=== PATIENT | male | born 1945 | race Caucasian/White ===

== ENCOUNTER 2022-08-08 10:59 | Inpatient (IN) ==
[2022-08-08] MEDS ORDERED: NALOXONE HCL 0.4 MG/1 ML VIAL/CARP IV STA (11:16)
--- NOTE | 2022-08-08 11:21 | Emergency Department Note ---
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 Patient self is unable provide me any additional history. She will occasionally groan follow some simple commands and then will just roll back over. Unable to assess if he is in discomfort or pain. Facility reported to EMS that they are concerned that he decreased mentation possibly somewhat downward gaze. Records from the facility indicate that he was sent there after hospitalization at [facility] and prior to that to walk for CHF exacerbation started on dialysis. He evidently had a benign pancreatic tumor removed in April 2020. REVIEW OF SYSTEMS: A total of 10 review of systems was obtained and negative except as stated above in the HPI. PAST MEDICAL HISTORY: As noted above and prior right AKA MEDICATIONS: Reviewed medication list from his facility SOCIAL HISTORY: , no reported history of tobacco use PHYSICAL EXAM: GENERAL: alert to loud verbal stimuli but will not answer questions. Occasionally rolls in bed. Head: normocephalic and atraumatic EYES: No injection, discharge or icterus. PERRL but somewhat pinpoint around 3 to 2 mm bilaterally. Does not seem to have a fixed gaze. NECK: Trachea midline. Supple. ENT: Mucous membranes pink and moist. LUNGS: Airway patent. No retractions. Breath sounds diminished in the bases HEART: Regular rate and rhythm. No chest wall tenderness with a right upper chest dialysis catheter in place. ABDOMEN: Soft and non-tender, without guarding or rebound. Healed midline surgical incision at the top of which there is a trace amount of tannish discharge. SKIN: Acyanotic, warm, dry with some scattered old sticker adhesive across the chest noted. EXTREMITIES: Right AKA without significant stump swelling or tenderness. The left lower extremity has 2-3+ edema without erythema. NEUROLOGICAL: Withdraws to pain in the extremities. Will occasionally try to roll over in bed and does make eye contact with loud verbal stimulation but not answering questions. EK bpm normal sinus rhythm. No PVC or PAC. No acute ST segment elevation with some lateral ST changes CONTINUOUS CARDIAC MONITORING: was ordered and showed a heart rate of 70s-80s bpm in NSR Patient's laboratory studies and imaging reviewed. Differential includes Infection, dehydration, metabolic abnormality, hypo/hyper glycemia, electrolyte disturbance, anemia, hypoxia, cardiac sources, intracerebral event, toxicologic, neurologic, as well as other pathologies. IMPRESSION/MEDICAL DECISION MAKING: Patient with multiple past medical issues including dialysis, abdominal surgery, and CHF. He with a change in mentation. On chronic pain medication. Did trial a dose of some Narcan here. Does have significant swelling of the left lower extremity some concern for some hypervolemia. Was due for dialysis today. Not hypoxic. EMS reports the patient may have had a fever. Infectious work-up will be completed. Trace discharge from the abdomen was swabbed and sent for culture although it seems to be fairly superficial. We will complete a CT head and the abdomen pelvis. Reports reviewed but no tenderness on exam. Trial of Narcan did not seem to have any significant effect. Patient was transiently awake and talking and then seem to have gone to sleep again. states this is not quite like him although he has slept deeply before. Blood work without leukocytosis although does have some anemia of 7.7. Unsure of exact baseline based on available records from [facility]. BNP elevated and does appear somewhat fluid overloaded. does report he was on a antibiotic regimen month or 2 ago regarding a post abdominal wound infection. Again white count is not elevated but question if this could be the source of the fever. UA pending as he seems to make urine. Needs dialysis but not emergently will avoid aggressive mag replacement as he will get dialysis soon. Again unsure of exact etiology of his sleepiness at times but again it is somewhat intermittent. Given the change however will bring into the hospital for further observation and care. DIAGNOSIS: AMS, Fluid overload, ESRD on dialysis, hypomagnesemia DISPOSITION: Hospitalist will evaluate Past Med/Surg History Medical History (Updated 08/08/22 @ 19:11 by Ramiro Montenegro M.D.) (HFpEF) heart failure with preserved ejection fraction Above knee amputation of right lower extremity Acute on chronic renal failure Altered mental status Anasarca CHF (congestive heart failure) Chronic pain Depression Diabetes mellitus type 1 DM2 (diabetes mellitus, type 2) ESRD (end stage renal disease) on dialysis HLD (hyperlipidemia) HTN (hypertension) Pancreatic tumor Pleural effusion Social History Smoking Status: Former smoker Second Hand Exposure: No; Do You Dip or Chew Tobacco: No; Tobacco Cessation Education Requested by Patient: No Hx Alcohol Use: No Hx Substance Use: No Preferred Language: Thai Communication Ability: Effective Site Acquisition Manager Required: No Beliefs That Will Affect Care: None Current Living Situation: Spouse Other Information That Helps Us Care for You: No Feels Safe at Home: Yes Safety Concerns: Feels Safe At This Time Assistive Devices: Walker Allergies Allergies Allergy/AdvReac Type Severity Reaction Status Date / Time aspirin AdvReac Unknown GASTRIC Unverified 01/22/12 13:49 UPSET codeine AdvReac Unknown GASTRIC Unverified 01/22/12 13:49 UPSET Home Meds Home Medications Medication Instructions Recorded Confirmed AMLODIPINE BESYLATE (NORVASC) 5 mg PO QPM ##0 01/22/12 08/08/22 Lorazepam (Ativan *) 0.5 mg PO TID PRN ##0 01/22/12 08/08/22 Lovastatin (Mevacor) 40 mg PO QPM ##0 01/22/12 08/08/22 Results & Data (ED) Vital Signs Vital Signs - 24 hr 08/08/22 11:12 08/08/22 11:12 08/08/22 12:02 Temperature 38.0 C H Temperature Source Oral Pulse Rate 80 Pulse Rate from SpO2 Sensor Respiratory Rate 13 Respiratory Effort / Characteristics Non-Labored Spontaneous Respiratory Depth Normal Respiratory Pattern Regular Blood Pressure 138/63 Blood Pressure Mean 88 Blood Pressure Position Lying Pulse Oximetry 97 Oxygen Delivery Method Room Air Room Air Room Air Sepsis Recent Fever Within 48 Hours Yes Sepsis New/Unexplained Change in Mental Status Yes Sepsis Action Taken by Nursing No Action Required 08/08/22 11:07 08/08/22 11:10 08/08/22 11:20 Temperature Temperature Source Pulse Rate 80 77 72 Pulse Rate from SpO2 Sensor 79 76 72 Respiratory Rate 17 16 Respiratory Effort / Characteristics Respiratory Depth Respiratory Pattern Blood Pressure Blood Pressure Mean Blood Pressure Position Pulse Oximetry 96 95 97 Oxygen Delivery Method Room Air Room Air Room Air Sepsis Recent Fever Within 48 Hours Sepsis New/Unexplained Change in Mental Status Sepsis Action Taken by Nursing 08/08/22 11:30 08/08/22 11:31 08/08/22 11:31 Temperature Temperature Source Pulse Rate 77 76 Pulse Rate from SpO2 Sensor 77 77 Respiratory Rate 17 19 Respiratory Effort / Characteristics Respiratory Depth Respiratory Pattern Blood Pressure 142/60 H Blood Pressure Mean 87 Blood Pressure Position Pulse Oximetry 96 96 Oxygen Delivery Method Room Air Room Air Room Air Sepsis Recent Fever Within 48 Hours Sepsis New/Unexplained Change in Mental Status Sepsis Action Taken by Nursing 08/08/22 11:48 08/08/22 11:50 08/08/22 12:00 Temperature Temperature Source Pulse Rate 80 Pulse Rate from SpO2 Sensor 82 Respiratory Rate 19 Respiratory Effort / Characteristics Respiratory Depth Respiratory Pattern Blood Pressure 153/80 H Blood Pressure Mean 104 Blood Pressure Position Pulse Oximetry 96 Oxygen Delivery Method Room Air Room Air Room Air Sepsis Recent Fever Within 48 Hours Sepsis New/Unexplained Change in Mental Status Sepsis Action Taken by Nursing 08/08/22 12:00 08/08/22 12:10 08/08/22 12:15 Temperature Temperature Source Pulse Rate 77 74 81 Pulse Rate from SpO2 Sensor 74 75 81 Respiratory Rate 16 20 20 Respiratory Effort / Characteristics Respiratory Depth Respiratory Pattern Blood Pressure Blood Pressure Mean Blood Pressure Position Pulse Oximetry 94 99 95 Oxygen Delivery Method Room Air Room Air Room Air Sepsis Recent Fever Within 48 Hours Sepsis New/Unexplained Change in Mental Status Sepsis Action Taken by Nursing 08/08/22 12:15 08/08/22 12:20 08/08/22 12:30 Temperature Temperature Source Pulse Rate 76 Pulse Rate from SpO2 Sensor 77 Respiratory Rate 20 Respiratory Effort / Characteristics Respiratory Depth Respiratory Pattern Blood Pressure 164/77 H 154/97 H Blood Pressure Mean 106 116 Blood Pressure Position Pulse Oximetry 97 Oxygen Delivery Method Room Air Room Air Room Air Sepsis Recent Fever Within 48 Hours Sepsis New/Unexplained Change in Mental Status Sepsis Action Taken by Nursing 08/08/22 12:30 08/08/22 12:40 08/08/22 12:45 Temperature Temperature Source Pulse Rate 86 78 82 Pulse Rate from SpO2 Sensor 82 78 79 Respiratory Rate 20 18 19 Respiratory Effort / Characteristics Respiratory Depth Respiratory Pattern Blood Pressure Blood Pressure Mean Blood Pressure Position Pulse Oximetry 95 91 91 Oxygen Delivery Method Room Air Room Air Room Air Sepsis Recent Fever Within 48 Hours Sepsis New/Unexplained Change in Mental Status Sepsis Action Taken by Nursing 08/08/22 12:45 08/08/22 12:50 08/08/22 13:00 Temperature Temperature Source Pulse Rate 80 Pulse Rate from SpO2 Sensor 80 Respiratory Rate 21 Respiratory Effort / Characteristics Respiratory Depth Respiratory Pattern Blood Pressure 176/78 H 163/90 H Blood Pressure Mean 110 114 Blood Pressure Position Pulse Oximetry 94 Oxygen Delivery Method Room Air Room Air Room Air Sepsis Recent Fever Within 48 Hours Sepsis New/Unexplained Change in Mental Status Sepsis Action Taken by Nursing 08/08/22 13:00 08/08/22 13:10 08/08/22 13:15 Temperature Temperature Source Pulse Rate 84 82 81 Pulse Rate from SpO2 Sensor 80 83 81 Respiratory Rate 23 18 21 Respiratory Effort / Characteristics Respiratory Depth Respiratory Pattern Blood Pressure Blood Pressure Mean Blood Pressure Position Pulse Oximetry 95 95 91 Oxygen Delivery Method Room Air Room Air Room Air Sepsis Recent Fever Within 48 Hours Sepsis New/Unexplained Change in Mental Status Sepsis Action Taken by Nursing 08/08/22 13:15 08/08/22 13:20 08/08/22 13:30 Temperature Temperature Source Pulse Rate 83 Pulse Rate from SpO2 Sensor 84 Respiratory Rate 19 Respiratory Effort / Characteristics Respiratory Depth Respiratory Pattern Blood Pressure 154/77 H 166/82 H Blood Pressure Mean 102 110 Blood Pressure Position Pulse Oximetry 94 Oxygen Delivery Method Room Air Room Air Room Air Sepsis Recent Fever Within 48 Hours Sepsis New/Unexplained Change in Mental Status Sepsis Action Taken by Nursing 08/08/22 13:30 08/08/22 13:40 08/08/22 13:46 Temperature Temperature Source Pulse Rate 78 78 83 Pulse Rate from SpO2 Sensor 80 78 81 Respiratory Rate 24 19 Respiratory Effort / Characteristics Respiratory Depth Respiratory Pattern Blood Pressure Blood Pressure Mean Blood Pressure Position Pulse Oximetry 92 93 95 Oxygen Delivery Method Room Air Room Air Room Air Sepsis Recent Fever Within 48 Hours Sepsis New/Unexplained Change in Mental Status Sepsis Action Taken by Nursing 08/08/22 13:46 08/08/22 13:50 08/08/22 14:00 Temperature Temperature Source Pulse Rate 78 81 Pulse Rate from SpO2 Sensor 78 81 Respiratory Rate 18 17 Respiratory Effort / Characteristics Respiratory Depth Respiratory Pattern Blood Pressure 173/79 H Blood Pressure Mean 110 Blood Pressure Position Pulse Oximetry 92 93 Oxygen Delivery Method Room Air Room Air Room Air Sepsis Recent Fever Within 48 Hours Sepsis New/Unexplained Change in Mental Status Sepsis Action Taken by Nursing 08/08/22 14:01 08/08/22 14:01 Temperature Temperature Source Pulse Rate 82 Pulse Rate from SpO2 Sensor 83 Respiratory Rate 13 Respiratory Effort / Characteristics Respiratory Depth Respiratory Pattern Blood Pressure 182/87 H Blood Pressure Mean 118 Blood Pressure Position Pulse Oximetry 92 Oxygen Delivery Method Room Air Room Air Sepsis Recent Fever Within 48 Hours Sepsis New/Unexplained Change in Mental Status Sepsis Action Taken by Nursing Laboratory Data Result diagrams: 08/08/22 11:15 08/08/22 11:15 Lab Results 08/08/22 08/08/22 08/08/22 Range/Units 11:15 11:15 11:15 WBC 5.77 (4.8-10.8) K/ul RBC 2.56 L (4.63-6.08) M/uL Hgb 7.7 L (14.0-18.0) g/dl Hct 23.0 L (40.1-51.0) % MCV 89.8 (80.0-100.0) fL MCH 30.1 (25.0-34.0) pg MCHC 33.5 (32.0-36.0) g/dL RDW Std Deviation 79.7 H (36.4-46.3) fL RDW Coeff of Jacqui 25.0 H (11.5-14.5) % Plt Count 271 (130-400) K/uL MPV 10.7 (9.4-12.4) fL Immature Gran % (Auto) 0.2 % Neut % (Auto) 69.5 % Lymph % (Auto) 16.1 % [place] % (Auto) 13.0 % Eos % (Auto) 0.9 % Baso % (Auto) 0.3 % Neut # (Auto) 4.01 (1.4-6.5) K/uL Lymph # (Auto) 0.93 L (1.2-3.4) K/uL [place] # (Auto) 0.75 (0.24-0.82) K/uL Eos # (Auto) 0.05 (0-0.50) K/uL Baso # (Auto) 0.02 (0-0.2) K/uL Immature Gran # (Auto) 0.01 (0.00-0.02) K/uL Target Cells 1+ PT 11.9 (9.0-12.0) Seconds INR 1.1 (0.9-1.1) Sodium 135 L (136-145) mmol/L Potassium 4.0 (3.5-5.1) mmol/L Chloride 100 (98-107) mmol/L Carbon Dioxide 28 (21-32) mmol/L Anion Gap 7 (3-11) BUN 27 H (6-23) mg/dl Creatinine 2.63 H (0.6-1.4) mg/dl Est Cr Clr Drug Dosing Not Reportable Est GFR ( Amer) 25.7 ml/min Est GFR (Non-Af Amer) 22.1 ml/min BUN/Creatinine Ratio 10.3 (10-20) Glucose 89 (70-99(Fasting)) mg/dl Lactate (0.4-2.0) mmol/L Calcium 7.7 L (8.5-10.1) mg/dl Magnesium 1.5 L (1.7-2.4) mg/dl Total Bilirubin 0.4 (0.2-1.0) mg/dl AST 13 (13-39) U/L ALT 13 (7-52) U/L Alkaline Phosphatase 68 (34-104) U/L Troponin I High Sens 27.4 H (0-20) pg/ml B-Natriuretic Peptide (0-100) pg/ml Total Protein 5.9 L (6.0-8.3) gm/dl Albumin 2.3 L (3.4-5.0) gm/dl Globulin 3.6 (2.5-4.0) gm/dl Albumin/Globulin Ratio 0.6 L (0.9-2) Procalcitonin (0-0.5) ng/ml TSH (0.300-4.500) uIu/ml SARS-CoV-2, RNA, NAAT (NEGATIVE) 08/08/22 08/08/22 08/08/22 Range/Units 11:15 11:15 11:15 WBC (4.8-10.8) K/ul RBC (4.63-6.08) M/uL Hgb (14.0-18.0) g/dl Hct (40.1-51.0) % MCV (80.0-100.0) fL MCH (25.0-34.0) pg MCHC (32.0-36.0) g/dL RDW Std Deviation (36.4-46.3) fL RDW Coeff of Jacqui (11.5-14.5) % Plt Count (130-400) K/uL MPV (9.4-12.4) fL Immature Gran % (Auto) % Neut % (Auto) % Lymph % (Auto) % [place] % (Auto) % Eos % (Auto) % Baso % (Auto) % Neut # (Auto) (1.4-6.5) K/uL Lymph # (Auto) (1.2-3.4) K/uL [place] # (Auto) (0.24-0.82) K/uL Eos # (Auto) (0-0.50) K/uL Baso # (Auto) (0-0.2) K/uL Immature Gran # (Auto) (0.00-0.02) K/uL Target Cells PT (9.0-12.0) Seconds INR (0.9-1.1) Sodium (136-145) mmol/L Potassium (3.5-5.1) mmol/L Chloride (98-107) mmol/L Carbon Dioxide (21-32) mmol/L Anion Gap (3-11) BUN (6-23) mg/dl Creatinine (0.6-1.4) mg/dl Est Cr Clr Drug Dosing Est GFR ( Amer) ml/min Est GFR (Non-Af Amer) ml/min BUN/Creatinine Ratio (10-20) Glucose (70-99(Fasting)) mg/dl Lactate (0.4-2.0) mmol/L Calcium (8.5-10.1) mg/dl Magnesium (1.7-2.4) mg/dl Total Bilirubin (0.2-1.0) mg/dl AST (13-39) U/L ALT (7-52) U/L Alkaline Phosphatase (34-104) U/L Troponin I High Sens (0-20) pg/ml B-Natriuretic Peptide 812 H (0-100) pg/ml Total Protein (6.0-8.3) gm/dl Albumin (3.4-5.0) gm/dl Globulin (2.5-4.0) gm/dl Albumin/Globulin Ratio (0.9-2) Procalcitonin 0.27 (0-0.5) ng/ml TSH 1.471 (0.300-4.500) uIu/ml SARS-CoV-2, RNA, NAAT (NEGATIVE) 08/08/22 08/08/22 Range/Units 11:27 12:05 WBC (4.8-10.8) K/ul RBC (4.63-6.08) M/uL Hgb (14.0-18.0) g/dl Hct (40.1-51.0) % MCV (80.0-100.0) fL MCH (25.0-34.0) pg MCHC (32.0-36.0) g/dL RDW Std Deviation (36.4-46.3) fL RDW Coeff of Jacqui (11.5-14.5) % Plt Count (130-400) K/uL MPV (9.4-12.4) fL Immature Gran % (Auto) % Neut % (Auto) % Lymph % (Auto) % [place] % (Auto) % Eos % (Auto) % Baso % (Auto) % Neut # (Auto) (1.4-6.5) K/uL Lymph # (Auto) (1.2-3.4) K/uL [place] # (Auto) (0.24-0.82) K/uL Eos # (Auto) (0-0.50) K/uL Baso # (Auto) (0-0.2) K/uL Immature Gran # (Auto) (0.00-0.02) K/uL Target Cells PT (9.0-12.0) Seconds INR (0.9-1.1) Sodium (136-145) mmol/L Potassium (3.5-5.1) mmol/L Chloride (98-107) mmol/L Carbon Dioxide (21-32) mmol/L Anion Gap (3-11) BUN (6-23) mg/dl Creatinine (0.6-1.4) mg/dl Est Cr Clr Drug Dosing Est GFR ( Amer) ml/min Est GFR (Non-Af Amer) ml/min BUN/Creatinine Ratio (10-20) Glucose (70-99(Fasting)) mg/dl Lactate 1.8 (0.4-2.0) mmol/L Calcium (8.5-10.1) mg/dl Magnesium (1.7-2.4) mg/dl Total Bilirubin (0.2-1.0) mg/dl AST (13-39) U/L ALT (7-52) U/L Alkaline Phosphatase (34-104) U/L Troponin I High Sens (0-20) pg/ml B-Natriuretic Peptide (0-100) pg/ml Total Protein (6.0-8.3) gm/dl Albumin (3.4-5.0) gm/dl Globulin (2.5-4.0) gm/dl Albumin/Globulin Ratio (0.9-2) Procalcitonin (0-0.5) ng/ml TSH (0.300-4.500) uIu/ml SARS-CoV-2, RNA, NAAT NEGATIVE (NEGATIVE) Administered Medications Discontinued Medications Naloxone HCl (Naloxone Hcl 0.4 Mg/1 Ml Vial/Carp) 0.4 mg IV NOW STA Stop: 08/08/22 11:17 Last Admin: 08/08/22 12:06 Dose: 0.4 mg Documented By: MELINDA Imaging Data Radiologist's Impression: Abdomen/Pelvis CT 08/08/22 11:[address] WITHOUT CONTRAST CT DOSE: 1281.08 mGy.cm HISTORY: Acutely altered mental status. Acute abdominal pain with reported history of prior abdominal surgery. ams, hx abd surgery TECHNIQUE: Multiaxial CT images of the abdomen and pelvis were performed without contrast. A dose lowering technique was utilized adhering to the principles of ALARA. COMPARISON STUDY: Chest radiograph of same day FINDINGS: Motion degraded exam. Cardiomegaly with extensive coronary artery calcifications. Right IJ hemodialysis catheter distal tip terminates within the superior cavoatrial junction. The pulmonary artery is dilated suggestive of pulmonary arterial hypertension. Small to moderate left with moderate right pleural effusions. Dependent bibasilar consolidation. The study is degraded by respiratory motion artifact. Study is also limited without the use of contrast. The spleen, pancreas and adrenal glands are not well visualized. The gallbladder may be surgically absent. Mild intrahepatic pneumobilia. No focal abnormality of the liver identified. 3.9 cm exophytic cyst within the superior pole right kidney. There are 2 nonobstructing calculi within the right kidney measuring up to 9 mm. Inde terminate peripherally calcified 3.1 cm structure without significant 15 noted within the inferior pole left kidney. 5.8 cm exophytic cyst in the inferior pole left kidney. No definite hydronephrosis. Mild prostamegaly with urinary bladder distention. Atherosclerosis of the aorta. Small fat filled inguinal hernias. Postoperative changes of the right inguinal canal. No definite bowel obstruction or bowel wall thickening. Moderate fecal retention. 10 mm tubular structure within the abdominal right lower quadrant may represent a mildly dilated appendix. Trace ascites with diffuse mesenteric edema. Heterogeneity of the abdominal left upper quadrant omentum. Anasarca. De generative changes of the spine, pelvis and hips. Cortical thickening of the proximal left femur suggestive of a healed chronic fracture deformity with postoperative changes and prior hardware removal. IMPRESSION: 1. The study is nearly nondiagnostic considering the lack of contrast and motion degradation. 2. Postoperative changes of the upper abdomen with heterogeneity within the abdominal left upper quadrant omentum, suboptimally evaluated as above. Findings may be on a postsurgical basis. No drainable fluid collection. 3. Cardiomegaly with fluid overload manifested by layering pleural effusions, trace ascites and anasarca. 4. Nonobstructing right renal calculi. No ureteral calculi or hydronephrosis. 5. 10 mm tubular structures in the abdominal right lower quadrant may represent a mildly dilated appendix. Correlate with clinical exam findings. 6. Cholecystectomy with pneumobilia. 7. Moderate fecal retention. 8. Additional findings as above. ACT 112: Negative or not required by law. The above report was generated using voice recognition software. It may contain grammatical, syntax or spelling errors. Electronically signed by: Salazar Mcdonough M.D. 08/08/2022 12:00 PM Chest X-Ray 08/08/22 11:11 XR chest 1V portable HISTORY: weakness COMPARISON: Chest 01/22/2012. FINDINGS: No pneumothorax. The heart is mildly enlarged. There is a moderate right pleural effusion. No significant left pleural effusion. Perihilar interstitial/vascular thickening favors mild pulmonary edema. Right basilar densities are noted. There is a right jugular catheter which terminates at the right atrium. Right hilar prominence is noted. IMPRESSION: 1. Moderate right pleural effusion. 2. Cardiomegaly with mild pulmonary edema. 3. Right perihilar/basilar densities are noted. This may represent atelectasis from the pleural effusion. Follow-up recommended to ensure resolution. ACT 112: Negative or not required by law. Electronically signed by: Paulo Randhawa M.D. 08/08/2022 11:[address] 08/08/22 11:[address] DOSE: HISTORY: Weakness. Altered mental status. TECHNIQUE: Multiaxial CT images of the head were performed without the use of intravenous contrast. Automated exposure control was utilized for this study. A dose lowering technique was utilized adhering to the principles of ALARA. Comparison: None. Findings: Motion artifact. The paranasal sinuses and mastoid air cells are clear. The calvarium and skull base are intact. There is no mass, hematoma, midline shift, acute infarct. White matter hypodensity is nonspecific but suggestive of microvascular ischemic change. The ventricles and sulci demonstrat e mild age-related involutional changes. Old small lacunar infarcts seen within the right thalamus and cerebellar vermis. Impression: Motion artifact. No definite acute intracranial abnormality. ACT 112: Negative or not required by law. Electronically signed by: Paulo Randhawa M.D. 08/08/2022 11:57 AM Discharge Plan Visit Data Chief Complaint: Illness Stated Complaint: AMS ED Provider: Ramiro Montenegro Discharge Problem: Altered mental status, ESRD (end stage renal disease) on dialysis, Diabetes mellitus type 1, Above knee amputation of right lower extremity, Anemia Patient Disposition: Admitted As Inpatient Discharge Instructions Interventions: ED Discharge Assessment Last Done: 08/08/22 15:40
--- NOTE | 2022-08-08 11:39 | XRay Report ---
XR chest 1V portable HISTORY: weakness COMPARISON: Chest 01/22/2012. FINDINGS: No pneumothorax. The heart is mildly enlarged. There is a moderate right pleural effusion. No significant left pleural effusion. Perihilar interstitial/vascular thickening favors mild pulmonar y edema. Right basilar densities are noted. There is a right jugular catheter which terminates at the right atrium. Right hilar prominence is noted. IMPRESSION: 1. Moderate right pleural effusion. 2. Cardiomegaly with mild pulmonary edema. 3. Right perihilar/basilar densities are noted. This may represent atelectasis from the pleural effus ion. Follow-up recommended to ensure resolution. ACT 112: Negative or not required by law. Electronically signed by: Paulo Randhawa M.D. 08/08/2022 11:38 AM
[2022-08-08 11:46] LABS: Basophils # (auto) 0.02 K/uL (0-0.2); Basophils % (auto) 0.3 %; Eosinophils # (auto) 0.05 K/uL (0-0.50); Eosinophils % (auto) 0.9 %; Hemoglobin 7.7 g/dl (14.0-18.0); Immature Granulocytes # (auto) 0.01 K/uL (0.00-0.02); Immature Granulocytes % (auto) 0.2 %; Lymphocytes # (auto) 0.93 K/uL (1.2-3.4); Lymphocytes % (auto) 16.1 %; Mean Corpuscular Hemoglobin 30.1 pg (25.0-34.0); Mean Corpuscular Hgb Conc 33.5 g/dL (32.0-36.0); Mean Corpuscular Volume 89.8 fL (80.0-100.0); Mean Platelet Volume 10.7 fL (9.4-12.4); Monocytes # (auto) 0.75 K/uL (0.24-0.82); Neutrophils # (auto) 4.01 K/uL (1.4-6.5); Neutrophils % (auto) 69.5 %; Platelet Count 271 K/uL (130-400); RDW Standard Deviation 79.7 fL (36.4-46.3); Red Blood Count 2.56 M/uL (4.63-6.08); White Blood Count 5.77 K/ul (4.8-10.8)
[2022-08-08 11:56] LABS: INR 1.1 (0.9-1.1); Prothrombin Time 11.9 Seconds (9.0-12.0)
--- NOTE | 2022-08-08 11:58 | CT Scan Report ---
HEAD CT NONCONTRAST CT DOSE: HISTORY: Weakness. Altered mental status. TECHNIQUE: Multiaxial CT images of the head were performed without the use of intravenous contrast. A utomated exposure control was utilized for this study. A dose lowering technique was utilized adheri ng to the principles of ALARA. Comparison: None. Findings: Motion artifact. The paranasal sinuses and mastoid air cells are clear. The calvarium and s kull base are intact. There is no mass, hematoma, midline shift, acute infarct. White matter hypodens ity is nonspecific but suggestive of microvascular ischemic change. The ventricles and sulci demonstr ate mild age-related involutional changes. Old small lacunar infarcts seen within the right thalamus and cerebellar vermis. Impression: Motion artifact. No definite acute intracranial abnormality. ACT 112: Negative or not required by law. Electronically signed by: Paulo Randhawa M.D. 08/08/2022 11:57 AM
--- NOTE | 2022-08-08 12:02 | CT Scan Report ---
ABDOMEN AND PELVIS CT WITHOUT CONTRAST CT DOSE: 1281.08 mGy.cm HISTORY: Acutely altered mental status. Acute abdominal pain with reported history of prior abdominal surgery. ams, hx abd surgery TECHNIQUE: Multiaxial CT images of the abdomen and pelvis were performed without contrast. A dose lo wering technique was utilized adhering to the principles of ALARA. COMPARISON STUDY: Chest radiograph of same day FINDINGS: Motion degraded exam. Cardiomegaly with extensive coronary artery calcifications. Right IJ hemodialys is catheter distal tip terminates within the superior cavoatrial junction. The pulmonary artery is di lated suggestive of pulmonary arterial hypertension. Small to moderate left with moderate right pleur al effusions. Dependent bibasilar consolidation. The study is degraded by respiratory motion artifact . Study is also limited without the use of contrast. The spleen, pancreas and adrenal glands are not well visualized. The gallbladder may be surgically ab sent. Mild intrahepatic pneumobilia. No focal abnormality of the liver identified. 3.9 cm exophytic cyst within the superior pole right kidney. There are 2 nonobstructing calculi withi n the right kidney measuring up to 9 mm. Indeterminate peripherally calcified 3.1 cm structure withou t significant 15 noted within the inferior pole left kidney. 5.8 cm exophytic cyst in the inferior po le left kidney. No definite hydronephrosis. Mild prostamegaly with urinary bladder distention. Athero sclerosis of the aorta. Small fat filled inguinal hernias. Postoperative changes of the right inguina l canal. No definite bowel obstruction or bowel wall thickening. Moderate fecal retention. 10 mm tubular struc ture within the abdominal right lower quadrant may represent a mildly dilated appendix. Trace ascites with diffuse mesenteric edema. Heterogeneity of the abdominal left upper quadrant omentum. Anasarca. Degenerative changes of the spine, pelvis and hips. Cortical thickening of the proximal left femur s uggestive of a healed chronic fracture deformity with postoperative changes and prior hardware remova l. IMPRESSION: 1. The study is nearly nondiagnostic considering the lack of contrast and motion degradation. 2. Postoperative changes of the upper abdomen with heterogeneity within the abdominal left upper quad rant omentum, suboptimally evaluated as above. Findings may be on a postsurgical basis. No drainable fluid collection. 3. Cardiomegaly with fluid overload manifested by layering pleural effusions, trace ascites and anasa rca. 4. Nonobstructing right renal calculi. No ureteral calculi or hydronephrosis. 5. 10 mm tubular structures in the abdominal right lower quadrant may represent a mildly dilated appe ndix. Correlate with clinical exam findings. 6. Cholecystectomy with pneumobilia. 7. Moderate fecal retention. 8. Additional findings as above. ACT 112: Negative or not required by law. The above report was generated using voice recognition software. It may contain grammatical, syntax o r spelling errors. Electronically signed by: Salazar Mcdonough M.D. 08/08/2022 12:00 PM
[2022-08-08 12:07] LABS: Target Cells 1+
[2022-08-08 12:11] LABS: Alanine Aminotransferase 13 U/L (7-52); Albumin Globulin Ratio 0.6 (0.9-2); Albumin Level 2.3 gm/dl (3.4-5.0); Alkaline Phosphatase 68 U/L (34-104); Anion Gap 7 (3-11); Aspartate Aminotransferase 13 U/L (13-39); BUN Creatinine Ratio 10.3 (10-20); Bilirubin,Total 0.4 mg/dl (0.2-1.0); Blood Urea Nitrogen 27 mg/dl (6-23); Calcium 7.7 mg/dl (8.5-10.1); Carbon Dioxide 28 mmol/L (21-32); Chloride 100 mmol/L (98-107); Est GFR (African American) 25.7 ml/min; Est GFR (Non-African American) 22.1 ml/min; Globulin 3.6 gm/dl (2.5-4.0); Glucose 89 mg/dl (70-99(Fasting)); Magnesium 1.5 mg/dl (1.7-2.4); Sodium 135 mmol/L (136-145); Total Protein 5.9 gm/dl (6.0-8.3)
[2022-08-08 12:13] LABS: Troponin I High Sensitivity 27.4 pg/ml (0-20)
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
[2022-08-08] MEDS ORDERED: PHARMACY GLYCEMIC MGMT CONSULT PRN (15:13)
[2022-08-08] MEDS ORDERED: SODIUM CHLORIDE 0.9% 1000ML 1,000 ML IV PRN (15:30)
[2022-08-08] MEDS ORDERED: ACETAMINOPHEN 325 MG TAB PO PRN (17:21)
[2022-08-08] MEDS ORDERED: CARBOHYDRATES FOR HYPOGLYCEMIA PO PRN (17:21)
[2022-08-08] MEDS ORDERED: GLUCOSE 40% GEL 15 GM TUBE PO PRN (17:21)
[2022-08-08] MEDS ORDERED: DC ALL PREVIOUSLY ORDERED DIABETES MEDS ONE (17:21)
[2022-08-08] MEDS ORDERED: MAGNESIUM HYDROXIDE SUSP 30 ML UDC PO PRN (17:21)
[2022-08-08] MEDS ORDERED: POLYETHYLENE (MIRALAX) 17 GM PACK PO PRN (17:21)
[2022-08-08] MEDS ORDERED: GLUCAGON FOR INJ 1 MG VIAL SQ PRN (17:21)
[2022-08-08] MEDS ORDERED: ALUMINUM/MAGNESIUM SUSP 30 ML UDC PO PRN (17:21)
[2022-08-08] MEDS ORDERED: GLUCOSE 10 TAB/TUBE PO PRN (17:21)
[2022-08-08] MEDS ORDERED: ONDANSETRON INJ 2 MG/ML 2 ML VIAL IV PRN (17:21)
--- NOTE | 2022-08-08 18:01 | Consultation Report ---
NEPHROLOGY CONSULTATION NOTE DATE OF SERVICE: 08/08/2022. REASON FOR CONSULTATION: Dialysis patient admitted with altered mental status and low glucose. HISTORY OF PRESENT ILLNESS: The patient is a 77-year-old male who was transferred earlier from [facility] where he was supposed to get dialysis today as per his schedule of Thursday, Thursday, ay. However, he had somewhat sudden decline in his cognitive status and confusion associated with lo w glucose. After that, the patient was sent over to the hospital for further evaluation and admissio n. He is a new starter for dialysis and was started on hemodialysis in [facility] just recentl y. He also had a renal biopsy done on 07/28/2022, but I do not have the result of the biopsy at this point. Patient is unable to give any history at this point. He did not open eyes and he did not ans wer any of my questions. During this most recent hospital admission, he was diagnosed with pancreati c serous cystadenoma, status post pancreatectomy, which was performed at [facility] and has now become a type 1 diabetic. Since then, he was admitted for a postoperative abscess in [facility] and completed 6 weeks course of IV antibiotics. He then was admitted in [facility] where he was diagnosed with renal failure and was started on hemodialysis. The patient has refused dialysi s at times including most recently on Thursday, so [facility] He is currently getting dialysis as I speak. He does have significant lower extremity edema, but breathing cotton, he appears to be fairly stable. Chest x-ray done earlier today shows possible pu lmonary edema. His hemoglobin is low at 7.7. I am not exactly clear how much he is eating at this t lorenzo, but he seems to be very noninteractive at this point, blood pressure is high. ALLERGIES: Reviewed. MEDICATIONS: Home medication was reviewed and is as per the reconciliation and the H and P list. PAST MEDICAL AND SURGICAL HISTORY: Includes history of congestive heart failure, history of diabetes , following the pancreatic resection. He now is on insulin, end-stage renal disease on dialysis but only for the last few weeks. Hypertension, pancreatic tumor. SOCIAL HISTORY: Unable to review at this time as the patient is not talking and nobody at the [facility]. REVIEW OF SYSTEMS: Not obtainable due to cognitive status. PHYSICAL EXAMINATION: GENERAL: Elderly white male who is lying in the bed, appears to be quite comfortable breathing cotton, he is not answering or following any command. VITAL SIGNS: Blood pressure is 183/90, pulse rate 81, temperature 38 degrees Celsius, 92% on room ai r. HEENT: Mucous membrane is moist. NECK: Supple. No JVD. CHEST: Limited breath sounds. CARDIOVASCULAR: S1 and S2, regular. ABDOMEN: Soft, nontender. EXTREMITIES: Show 2+ pitting edema in his unilateral leg, status post BKA. NEUROLOGIC: It appears he does not want to answer questions. He keeps his eyes closed and did not f ollow any command. LABORATORY TEST: From this morning shows hemoglobin 7.7, platelet count 271, BUN 27, creatinine 2.63 , calcium 7.7, magnesium 1.5, albumin 2.3. COVID test negative. Chest x-ray shows moderate right pl eural effusion, cardiomegaly with mild pulmonary edema. CT abdomen and pelvis shows cardiomegaly wit h fluid overload, pleural effusion, ascites and anasarca. ASSESSMENT AND PLAN: A 77-year-old male with newly started hemodialysis within the last few weeks, w as getting rehab at the rehab hospital, but was transferred because of altered mental status and low glucose. I have been consulted for dialysis management. End-stage renal disease, he has been newly started on hemodialysis. A lot of details are still not c lear at this time, but it is clear that he has only been started on hemodialysis within the last 4-6 weeks and even had a renal biopsy, but the result of which I do not have at this time, patient is sti ll making urine. On exam, he appears to be significantly fluid overloaded with both pleural effusion , pulmonary edema, ascites and anasarca and significant pitting edema. His blood pressure is also hi gh. Given the scheduling constraints for today, we will do him for 3 hours. However, I strongly bel ieve that he still makes urine and if given enough Lasix, he should be making more, so given that I w ill give him Lasix 100 mg IV twice daily starting this evening. Next week, we will try to obtain the result of the renal biopsy. His dates are Thursday, Thursday, Thursday. At this point, I am not exactl y clear why he is not getting the Epogen or the heparin, but we will figure this out. We will do renay lysis today without heparin and without Epogen. Thank you very much for the consult. Job ID: [id number]
[2022-08-08] MEDS ORDERED: cefTRIAXone SODIUM 1,000 MG in DEXTROSE 5% 50 ML IV SCH (19:00)
[2022-08-08] MEDS: MAGNESIUM SULFATE / D5W 1 GM/100 ML BAG IV SCH ×2 (20:07→22:38)
[2022-08-08] MEDS: INSULIN ASPART PER UNIT SC SCH ×2 (20:11→23:08)
--- NOTE | 2022-08-08 20:44 | XRay Report ---
SINGLE VIEW CHEST CLINICAL HISTORY: Pleural effusions. FINDINGS: 2 AP, portable, upright chest radiographs (to study dated 08/08/2022. A right internal jugul ar central venous catheter is unchanged in position. The heart is enlarged noting atherosclerotic geremias cification of the thoracic aorta. There is mild pulmonary vascular congestion. There are larger than left pleural effusions with dependent consolidation. These are similar in appearance to today's earli er examination. No pneumothorax is seen. The skeletal structures are osteopenic. The bony thorax is g rossly intact. IMPRESSION: 1. Cardiomegaly with pulmonary vascular congestion. 2. Right larger than left pleural effusions with dependent consolidation. This is similar to today's earlier examination. ACT 112: Negative or not required by law. Electronically signed by: Jose Miguel Pan M.D. 08/08/2022 8:42 PM
[2022-08-08] MEDS ORDERED: LANTUS PER UNIT CHARGE SQ SCH ×2 (21:00)
[2022-08-08] MEDS ORDERED: HEPARIN SODIUM (PORCINE) 5,000 UNITS in SYRINGE 0 ML IV SCH (21:00)
[2022-08-08] MEDS ORDERED: hydrALAZINE HCL 20 MG/ML VIAL IV SCH ×2 (21:00)
[2022-08-08] MEDS: DAPTOmycin 275 MG in SYRINGE 0 ML IV SCH (22:38)
[2022-08-08] MEDS: HEPARIN SOD 5,000 UNIT/0.5 ML VIAL SQ SCH (22:39)
[2022-08-08] MEDS: FUROSEMIDE 10 MG/ML 10 ML VIAL IV SCH (22:39)
[2022-08-09] MEDS: DEXTROSE 50% 50 ML SYRINGE IV PRN (07:32)
[2022-08-09 08:03] LABS: Hematocrit (blood only) 26.4 % (40.1-51.0); Hemoglobin 8.9 g/dl (14.0-18.0); Mean Corpuscular Hemoglobin 30.3 pg (25.0-34.0); Mean Corpuscular Hgb Conc 33.7 g/dL (32.0-36.0); Mean Corpuscular Volume 89.8 fL (80.0-100.0); Platelet Count 186 K/uL (130-400); RDW Coefficient of Variation 24.5 % (11.5-14.5); RDW Standard Deviation 78.1 fL (36.4-46.3); Red Blood Count 2.94 M/uL (4.63-6.08); White Blood Count 6.26 K/ul (4.8-10.8)
[2022-08-09] MEDS: INSULIN ASPART PER UNIT SC SCH ×4 (08:08→21:08)
[2022-08-09] MEDS: TRIMETHOPRIM/POLYMYXIN B OP SCH ×4 (08:09→22:44)
[2022-08-09] MEDS: CYANOCOBALAMIN (B-12) 500 MCG TABLET PO SCH (08:09)
[2022-08-09] MEDS: FOLIC ACID 1 MG TAB PO SCH (08:10)
[2022-08-09] MEDS: DOCUSATE SODIUM 100 MG CAP PO SCH ×2 (08:10→23:18)
[2022-08-09] MEDS: hydrALAZINE HCL 25 MG TAB PO SCH ×3 (08:10→22:43)
[2022-08-09] MEDS: ISOSORBIDE MONO EXTENDED REL 30 MG TABCR PO SCH (08:10)
[2022-08-09] MEDS: FUROSEMIDE 10 MG/ML 10 ML VIAL IV SCH ×2 (08:10→22:43)
[2022-08-09] MEDS: amLODIPine BESYLATE 5 MG TAB PO SCH (08:10)
[2022-08-09] MEDS: ASPIRIN 81 MG ECTAB PO SCH (08:10)
[2022-08-09] MEDS: HEPARIN SOD 5,000 UNIT/0.5 ML VIAL SQ SCH ×2 (08:10→22:44)
--- NOTE | 2022-08-09 08:36 | Electrocardiogram Report ---
Test Reason : Blood Pressure : / mmHG Vent. Rate : 077 BPM Atrial Rate : 077 BPM P-R Int : 192 ms QRS Dur : 084 ms QT Int : 380 ms P-R-T Axes : 047 -10 -82 degrees QTc Int : 430 ms Normal sinus rhythm Nonspecific ST and T wave abnormality Abnormal ECG When compared with ECG of 22-JAN-2012 14:15, Nonspecific ST and T wave abnormality is now Present Confirmed by Oli Henderson ([id number]) on 08/09/2022 8:36:51 AM Referred By: REFERRED SELF Confirmed By:Oli Henderson
--- NOTE | 2022-08-09 08:57 | XRay Report ---
XR chest 1V portable HISTORY: 77 years-old Male Pleural effusion follow-up study in a patient with a right pleural effusi on COMPARISON: Chest radiograph 08/08/2022 TECHNIQUE: AP view of the chest FINDINGS: Cardiac silhouette is enlarged. Dual lumen right IJ hemodialysis catheter is unchanged in positioning . No pneumothorax. Right greater left pleural effusions are redemonstrated and appear generally stabl e from the prior study. There is mildly improved aeration of the right lung base. Decreased pulmonary vascular congestion. Degenerative changes of the shoulders and spine. IMPRESSION: 1. Cardiomegaly with decreased pulmonary vascular congestion. 2. Right greater than left pleural effusions with mildly improved aeration of the right lung base. ACT 112: Negative or not required by law. The above report was generated using voice recognition software. It may contain grammatical, syntax o r spelling errors. Electronically signed by: Salazar Mcdonough M.D. 08/09/2022 8:56 AM
[2022-08-09 08:58] LABS: BUN Creatinine Ratio 9.2 (10-20); Calcium 8.1 mg/dl (8.5-10.1); Creatinine Clr Calc Pharmacy 29.7 ml/min; Est GFR (African American) 39.3 ml/min; Est GFR (Non-African American) 33.9 ml/min; Magnesium 2.2 mg/dl (1.7-2.4); Phosphorus 3.2 mg/dl (2.5-4.9); Potassium 3.2 mmol/L (3.5-5.1)
[2022-08-09] MEDS ORDERED: CEFEPIME 1,000 MG in SYRINGE 0 ML IV SCH (09:00)
[2022-08-09 09:30] LABS: Estimated Average Glucose 126 mg/dl
[2022-08-09] MEDS ORDERED: POTASSIUM CHLORIDE CRTAB 20 MEQ TABCR PO ONE (09:49)
--- NOTE | 2022-08-09 11:01 | Nephrology Progress Note ---
Date of Service August 09, 2022 Assessment & Plan (1) ESRD (end stage renal disease) on dialysis: Plan: Patient with ESRD dialyzed on Thursday schedule. He was transferred from rehab due to altered mental status. He had dialysis on 08/08/2022. Electrolytes are stable and no signs of volume overload. No indication for dialysis today. Next dialysis will be Thursday. Potassium is low today. Agree with potassium chloride 40 mEq once Admission and Anticipated Discharge Date Admission Date: August 08, 2022 Subjective Seen in follow-up for ESRD. Patient recently started dialysis after a series of hospitalization for pancreatic cystadenoma status post pancreatectomy and then admission in [place] for abscess. Patient is now dialyzed Thursday. He was transferred from rehab due to altered mental status. He had dialysis yesterday. He denies shortness of breath. Review of Systems Review of Systems: All other systems were reviewed and negative except as noted in HPI Physical Exam Physical Exam: General exam: Appears comfortable, no acute distress HEENT: Pupils are equal and reactive to light Neck: No JVD, neck is supple trachea is midline Respiratory system: Clear breath sounds bilaterally. Gastrointestinal: Abdomen is soft, non distended, non tender, bowel sounds are present CVS: Regular rate and rhythm. No murmurs, rubs or gallops Musculoskeletal: No joint or muscle tenderness Extremities: Non tender, 1+ edema, peripheral pulses are present Neuro: Oriented, no tremors, no focal neurological deficits Skin: No rashes Access: CVC Results & Data ([facility]) Vital Signs (Past 12 Hours) Vital Signs Temp Pulse Pulse Resp BP Pulse Ox O2 Del Method 08/09/22 09:00 Room Air 08/09/22 06:50 36.8 C 81 18 166/73 H 93 Room Air 08/09/22 03:27 36.8 C 84 20 140/60 94 Room Air 08/08/22 23:00 77 Laboratory Results 08/09/22 07:47 08/08/22 08/08/22 08/09/22 11:15 11:15 07:47 WBC 5.77 6.26 RBC 2.56 L 2.94 L MCV 89.8 89.8 MCH 30.1 30.3 MCHC 33.5 33.7 RDW Std Deviation 79.7 H 78.1 H RDW Coeff of Jacqui 25.0 H 24.5 H Plt Count 271 186 MPV 10.7 11.0 Phosphorus Albumin 2.3 L 08/09/22 07:47 WBC RBC MCV MCH MCHC RDW Std Deviation RDW Coeff of Jacqui Plt Count MPV Phosphorus 3.2 Albumin
[2022-08-09] MEDS ORDERED: levETIRAcetam 1,000 MG in 0.9 % SODIUM CHLORIDE 100 ML IV STA (15:45)
[2022-08-09] MEDS ORDERED: LORazepam 2 MG in SYRINGE 1 ML IV PRN (15:45)
--- NOTE | 2022-08-09 16:18 | CT Scan Report ---
CT head/brain wo con CLINICAL HISTORY: 77 years-old Male with Seizure. Acute seizure TECHNIQUE: Multiple axial CT images of the head were obtained without contrast. A dose lowering tech nique was utilized adhering to the principles of ALARA. CT DOSE: 537.48 mGy.cm COMPARISON: Head CT 08/08/2022 FINDINGS: No acute intracranial hemorrhage, midline shift, intracranial mass, hydrocephalus, territorial ischem ia or abnormal extra-axial collection. Age-related involutional changes. White matter hypodensities s uggest chronic microvascular ischemic disease. Cerebral vascular calcifications. The calvarium is intact. Prior bilateral lens repair. The paranasal sinuses, mastoid air cells, and m iddle ear cavities are clear. IMPRESSION: Stable exam from the study obtained 24 hours earlier. No acute intracranial abnormality. ACT 112: Negative or not required by law. The above report was generated using voice recognition software. It may contain grammatical, syntax o r spelling errors. Electronically signed by: Salazar Mcdonough M.D. 08/09/2022 4:16 PM
[2022-08-09 16:20] LABS: BUN Creatinine Ratio 8.4 (10-20); Calcium 8.2 mg/dl (8.5-10.1); Creatinine Clr Calc Pharmacy 25.7 ml/min; Est GFR (African American) 32.9 ml/min; Est GFR (Non-African American) 28.4 ml/min; Potassium 3.6 mmol/L (3.5-5.1)
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
[2022-08-09 18:50] LABS: A calco-baum cmplx NotReported Not Detected (NotDetected); Bact fragilis Not Reported Not Detected (NotDetected); C auris Not Reported Not Detected (NotDetected); Calbicans Not Reported Not Detected (NotDetected); Candida glabrata Not Reported Not Detected (NotDetected); Candida krusei Not Reported Not Detected (NotDetected); Cneoformans/gatti Not Reported Not Detected (NotDetected); Cparapsilosis Not Reported Not Detected (NotDetected); Ctropicalis Not Reported Not Detected (NotDetected); E cloacae compx Not Reported Not Detected (NotDetected); Efaecalis Not Reported Not Detected (NotDetected); Efaecium Not Reported Not Detected (NotDetected); Enterobacterales Not Reported Not Detected (NotDetected); Escherichia coli Not Reported Not Detected (NotDetected); H influenzae Not Reported Not Detected (NotDetected); K aerogenes Not Reported Not Detected (NotDetected); Koxytoca Not Reported Not Detected (NotDetected); Kpneumoniae grp Not Reported Not Detected (NotDetected); Lmonocyt Not Reported Not Detected (NotDetected); N meningitidis Not Reported Not Detected (NotDetected); P aeruginosa Not Reported Not Detected (NotDetected); Proteus spp Not Reported Not Detected (NotDetected); Salmonella spp Not Reported Not Detected (NotDetected); Smarcescens Not Reported Not Detected (NotDetected); Staph lugdunensis Not Reported Not Detected (NotDetected); Staph spp. Not Reported DETECTED (NotDetected); Staphaureus Not Reported Not Detected (NotDetected); Staphepi Not Reported DETECTED (NotDetected); Staphylococcus spp. DETECTED (NotDetected); Stenmaltophilia Not Reported Not Detected (NotDetected); Strep agal(GrpB) Not Reported Not Detected (NotDetected); Strep pneum Not Reported Not Detected (NotDetected); Strep pyog (GrpA) Not Reported Not Detected (NotDetected); Strep spp Not Reported Not Detected (NotDetected)
[2022-08-09 18:59] LABS: Staphylococcus epidermidis DETECTED (NotDetected); mecAC Resistant Gene DETECTED (NotDetected)
[2022-08-09] MEDS ORDERED: QUEtiapine FUMARATE 25 MG TABLET PO SCH (21:00)
[2022-08-09] MEDS: levETIRAcetam 250 MG TAB PO SCH (22:43)
[2022-08-09] MEDS: hydrOXYzine HCl 10 MG TAB PO SCH (22:43)
[2022-08-09] MEDS ORDERED: levETIRAcetam 750 MG in 0.9 % SODIUM CHLORIDE 100 ML IV SCH (23:00)
--- NOTE | 2022-08-09 23:12 | Electrocardiogram Report ---
Test Reason : Blood Pressure : / mmHG Vent. Rate : 081 BPM Atrial Rate : 081 BPM P-R Int : 176 ms QRS Dur : 088 ms QT Int : 366 ms P-R-T Axes : 093 -14 063 degrees QTc Int : 425 ms Normal sinus rhythm Nonspecific ST and T wave abnormality Abnormal ECG When compared with ECG of 08-AUG-2022 11:12, Nonspecific T wave abnormality, worse in Anterolateral leads Confirmed by Oli Henderson ([id number]) on 08/09/2022 11:11:57 PM Referred By: REFERRED SELF Confirmed By:Oli Henderson
[2022-08-10] MEDS: INSULIN ASPART PER UNIT SC SCH ×6 (00:50→21:03)
[2022-08-10 06:12] LABS: Hematocrit (blood only) 25.7 % (40.1-51.0); Hemoglobin 8.6 g/dl (14.0-18.0)
[2022-08-10 07:06] LABS: BUN Creatinine Ratio 8.7 (10-20); Calcium 8.2 mg/dl (8.5-10.1); Creatinine Clr Calc Pharmacy 23.6 ml/min; Est GFR (African American) 30.2 ml/min; Magnesium 2.1 mg/dl (1.7-2.4); Potassium 3.5 mmol/L (3.5-5.1)
[2022-08-10] MEDS: ISOSORBIDE MONO EXTENDED REL 30 MG TABCR PO SCH (08:08)
[2022-08-10] MEDS: amLODIPine BESYLATE 5 MG TAB PO SCH (08:08)
[2022-08-10] MEDS: levETIRAcetam 250 MG TAB PO SCH (08:08)
[2022-08-10] MEDS: hydrALAZINE HCL 25 MG TAB PO SCH ×3 (08:08→21:12)
[2022-08-10] MEDS: CYANOCOBALAMIN (B-12) 500 MCG TABLET PO SCH (08:08)
[2022-08-10] MEDS: HEPARIN SOD 5,000 UNIT/0.5 ML VIAL SQ SCH ×2 (08:08→21:12)
[2022-08-10] MEDS: ASPIRIN 81 MG ECTAB PO SCH (08:08)
[2022-08-10] MEDS: FOLIC ACID 1 MG TAB PO SCH (08:08)
[2022-08-10] MEDS: TRIMETHOPRIM/POLYMYXIN B OP SCH ×4 (08:09→21:14)
[2022-08-10] MEDS: DOCUSATE SODIUM 100 MG CAP PO SCH ×2 (08:09→21:13)
--- NOTE | 2022-08-10 09:43 | XRay Report ---
SINGLE VIEW CHEST CLINICAL HISTORY: Hypoxia FINDINGS: An AP, portable, upright chest radiograph is compared to study dated 08/09/2022. The examina tion is degraded by portable technique, apical lordotic positioning, and patient rotation. A right in ternal jugular central venous catheter is unchanged in position. The heart is enlarged noting atheros clerotic calcification of the thoracic aorta. There is mild pulmonary vascular congestion. There are larger than left pleural effusions with dependent consolidation. These are similar in appearance to jose dejesus's earlier examination. No pneumothorax is seen. The skeletal structures are osteopenic. The bony thorax is grossly intact. IMPRESSION: 1. Cardiomegaly with pulmonary vascular congestion. 2. Right larger than left pleural effusions with dependent consolidation. This is similar to yesterda y. ACT 112: Negative or not required by law. Electronically signed by: Jose Miguel Pan M.D. 08/10/2022 9:41 AM
[2022-08-10] MEDS: FUROSEMIDE 10 MG/ML 10 ML VIAL IV SCH ×2 (10:24→21:14)
--- NOTE | 2022-08-10 11:26 | Nephrology Progress Note ---
Date of Service August 10, 2022 Assessment & Plan (1) ESRD (end stage renal disease) on dialysis: Plan: Patient with ESRD dialyzed on Thursday schedule. He was transferred from rehab due to altered mental status. He had dialysis on 08/08/2022. Electrolytes are stable and no signs of volume overload. No indication for dialysis today. Next dialysis will be Thursday. Potassium is low today. We will dialyze him on a 3K bath. Admission and Anticipated Discharge Date Admission Date: August 08, 2022 Subjective Seen for ESRD. No shortness of breath. Left leg is swollen. Review of Systems Review of Systems: All other systems were reviewed and negative except as noted in HPI Physical Exam Physical Exam: General exam: Appears comfortable, no acute distress HEENT: Pupils are equal and reactive to light Neck: No JVD, neck is supple trachea is midline Respiratory system: Clear breath sounds bilaterally. Gastrointestinal: Abdomen is soft, non distended, non tender, bowel sounds are present CVS: Regular rate and rhythm. No murmurs, rubs or gallops Musculoskeletal: No joint or muscle tenderness Extremities: Non tender, 1+ edema, peripheral pulses are present Neuro: Oriented, no tremors, no focal neurological deficits Skin: No rashes Access: CVC Results & Data ([facility]) Vital Signs (Past 12 Hours) Vital Signs Temp Pulse Pulse Resp BP Pulse Ox O2 Del Method 08/10/22 09:30 76 08/10/22 09:30 Room Air 08/10/22 09:00 92 Room Air 08/10/22 07:09 36.6 C 77 16 162/80 H 100 Oxymask 08/10/22 02:52 36.5 C 77 16 155/79 H 100 Oxymask 08/09/22 23:38 78 O2 Flow Rate 08/10/22 09:30 08/10/22 09:30 08/10/22 09:00 08/10/22 07:09 5 08/10/22 02:52 5 08/09/22 23:38 Laboratory Results 08/10/22 05:50
--- NOTE | 2022-08-10 12:37 | CT Scan Report ---
CT SCAN OF THE BRAIN WITHOUT IV CONTRAST CLINICAL HISTORY: Seizure. COMPARISON STUDY: CT scans of the brain dated 08/09/2022 and 08/08/2022. TECHNIQUE: Unenhanced axial CT scan of the brain is performed from the vertex to the skull base. A do se lowering technique was utilized adhering to the principles of ALARA. CT DOSE: 537.48 mGy.cm FINDINGS: Brain parenchyma: There is age-related involutional change noting moderate to advanced subcortical an d periventricular microangiopathic disease. There is no hemorrhage, mass effect, or evidence of acute territorial ischemia by CT criteria. Strickland-white matter differentiation is preserved. No extra-axial fluid collection is seen. Ventricles, sulci, cisterns: Prominent secondary to involutional change. Intracranial vasculature: There is atherosclerotic calcification of the cavernous carotid and vertebr al arteries. Calvarium: Unremarkable. Sinuses and mastoids: The visualized paranasal sinuses are clear. The mastoid air cells are well pneu matized. Orbits: The bony orbits are grossly intact. There are bilateral ocular lens implants. IMPRESSION: No acute intracranial abnormality. No change from studies performed the last 2 days. ACT 112: Negative or not required by law. Electronically signed by: Jose Miguel Pan M.D. 08/10/2022 12:35 PM
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
[2022-08-10] MEDS: DAPTOmycin 275 MG in SYRINGE 0 ML IV SCH (18:23)
[2022-08-10] MEDS: DEXTROSE 50% 50 ML SYRINGE IV PRN (21:07)
[2022-08-10] MEDS: levETIRAcetam 500 MG TAB PO SCH (21:13)
[2022-08-10] MEDS: hydrOXYzine HCl 10 MG TAB PO SCH (21:13)
[2022-08-11] MEDS ORDERED: HEPARIN SOD (PORCINE) 1000 UNIT/ML IV ONE (07:00)
--- NOTE | 2022-08-11 07:11 | Nephrology Progress Note ---
Date of Service August 11, 2022 Assessment & Plan (1) ESRD (end stage renal disease) on dialysis: Plan: ESRD dialyzed on Thursday schedule. He was transferred from rehab due to altered mental status. He had dialysis on 08/08/2022. Electrolytes are stable and with worsening volume overload. - for dialysis today on a 3K bath -ensure labs for today to verify bath appropriateness -slightly more aggressive fluid removal/long tx d/t XR findings >no diuretics recommended >>NB keppra is cleared by dialysis - defer to primary team if supplemental dose needed Care coordinated w/ Dr Bellamy. Admission and Anticipated Discharge Date Admission Date: August 08, [address] w/o acute process, CXR w/ vascular congestion and unchnaged R>L pleural effusions w/ consolidation; minimally interactive - answers just that has no sob else aphasic Review of Systems 2 Review of Systems: Other (as per HPI, limited interaction) Physical Exam Constitutional: well developed and + frail appearing; no acute distress Eyes: EOM intact bilaterally ENMT: Ears: no external ear abnormality Nose: no external nose abnormality Mouth: + dry oral mucous membranes Neck: no nuchal rigidity Respiratory: normal respiratory effort Auscultation: + diminished lung sounds Cardiovascular: Rate/Rhythm: regular rate and regular rhythm Extremities: + edema (2+ ankle edema) Gastrointestinal (Abdomen): Inspection/Auscultation: normal bowel sounds Percussion/Palpation: abdomen soft; abdomen nontender Musculoskeletal: Extremities: + abnormal strength (not moving RLE for me) R AKA Skin: no rashes, warm and dry Neurologic: faith, fluent speech, no tremor Genitourinary: no bermudez Results & Data ([facility]) Vital Signs (Past 12 Hours) Vital Signs Temp Pulse Pulse Resp BP Pulse Ox O2 Del Method 08/11/22 05:09 36.7 C 79 16 139/64 91 Room Air 08/11/22 00:01 36.6 C 81 16 152/65 H 94 Room Air 08/10/22 23:55 Room Air 08/10/22 23:01 77 08/10/22 19:40 36.6 C 73 16 134/69 93 Room Air Diagnostic Findings as above
[2022-08-11] MEDS ORDERED: EPOETIN ALFA 20,000 UNITS/ML VIAL IV ONE (07:12)
[2022-08-11] MEDS ORDERED: SODIUM CHLORIDE 0.9% 1000ML 1,000 ML IV PRN (07:12)
[2022-08-11 07:24] LABS: Hematocrit (blood only) 24.3 % (40.1-51.0); Hemoglobin 8.4 g/dl (14.0-18.0); Mean Corpuscular Hemoglobin 31.2 pg (25.0-34.0); Mean Corpuscular Hgb Conc 34.6 g/dL (32.0-36.0); Mean Corpuscular Volume 90.3 fL (80.0-100.0); Mean Platelet Volume 11.9 fL (9.4-12.4); Platelet Count 236 K/uL (130-400); RDW Coefficient of Variation 23.9 % (11.5-14.5); RDW Standard Deviation 78.4 fL (36.4-46.3); Red Blood Count 2.69 M/uL (4.63-6.08); White Blood Count 7.99 K/ul (4.8-10.8)
[2022-08-11 08:05] LABS: BUN Creatinine Ratio 9.7 (10-20); Creatinine Clr Calc Pharmacy 20.7 ml/min; Est GFR (African American) 25.2 ml/min; Est GFR (Non-African American) 21.7 ml/min; Magnesium 1.9 mg/dl (1.7-2.4); Potassium 3.2 mmol/L (3.5-5.1)
[2022-08-11] MEDS: INSULIN ASPART PER UNIT SC SCH ×4 (08:17→22:56)
[2022-08-11] MEDS: ASPIRIN 81 MG ECTAB PO SCH (08:22)
[2022-08-11] MEDS: HEPARIN SOD 5,000 UNIT/0.5 ML VIAL SQ SCH ×2 (08:22→20:30)
[2022-08-11] MEDS: CYANOCOBALAMIN (B-12) 500 MCG TABLET PO SCH (08:22)
[2022-08-11] MEDS: levETIRAcetam 500 MG TAB PO SCH ×2 (08:22→20:29)
[2022-08-11] MEDS: DOCUSATE SODIUM 100 MG CAP PO SCH ×2 (08:22→20:29)
[2022-08-11] MEDS: FOLIC ACID 1 MG TAB PO SCH (08:22)
[2022-08-11] MEDS ORDERED: POTASSIUM CHLORIDE CRTAB 20 MEQ TABCR PO ONE (08:52)
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
--- NOTE | 2022-08-11 14:12 | Progress Notes ---
DATE OF SERVICE: 08/11/2022. SUBJECTIVE: I am seeing the patient in followup for altered mental status and seizure x2. IV Keppra was given and the patient was started on maintenance Keppra. EEG is pending. CT of the he ad noncontrast shows chronic vascular changes. OBJECTIVE: On exam, the patient is on dialysis. Vitals, blood pressure 140/89, pulse 77, respiratio ns 14, temperature 37.4, satting 94% on room air. The patient is awake, follows only very simple com mands, 1-step. Will not state his name. There appeared to be intact extraocular movements. There i s normal facial symmetry. The patient moved the uppers symmetrically and appears to spontaneously mo ve the left lower. There is a right AKA. IMPRESSION: New onset seizure. The patient is on Keppra. Await results of EEG. We will follow karuna andrew. Job ID: [id number]
[2022-08-11] MEDS: amLODIPine BESYLATE 5 MG TAB PO SCH (14:21)
[2022-08-11] MEDS: ISOSORBIDE MONO EXTENDED REL 30 MG TABCR PO SCH (14:21)
[2022-08-11] MEDS: hydrALAZINE HCL 25 MG TAB PO SCH ×3 (14:22→20:29)
[2022-08-11] MEDS: TRIMETHOPRIM/POLYMYXIN B OP SCH ×3 (14:38→20:30)
[2022-08-11] MEDS: FUROSEMIDE 10 MG/ML 10 ML VIAL IV SCH (14:39)
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
[2022-08-11] MEDS ORDERED: BUMETANIDE 1 MG TAB PO SCH (16:30)
[2022-08-11] MEDS ORDERED: levETIRAcetam 500 MG TAB PO ONE (16:45)
--- NOTE | 2022-08-11 17:36 | Electroencephalogram ---
EEG Procedure Note Date of Service August 11, 2022 Start / End Times Start Time: 06:53 End Time: 07:13 Referring Physician Kevin Hendrix DO History A 77 year old male with new onset seizure. EEG performed for evaluation of epileptiform activity. Home Medication List Medication Instructions Recorded Confirmed Type acetaminophen 325 mg tablet 650 mg PO QID PRN Pain 08/08/22 08/08/22 History amlodipine 10 mg tablet 10 mg PO DAILY 08/08/22 08/08/22 History aspirin 81 mg tablet,delayed 81 mg PO DAILY 08/08/22 08/08/22 History release atorvastatin 10 mg tablet 10 mg PO HS 08/08/22 08/08/22 History bisacodyl 10 mg rectal suppository 10 mg [place] DAILY PRN Constipation 08/08/22 08/08/22 History bumetanide 2 mg tablet 2 mg PO BID 08/08/22 08/08/22 History cyanocobalamin (vitamin B-12) 1,000 mcg PO DAILY 08/08/22 08/08/22 History 1,000 mcg tablet docusate sodium 100 mg capsule 100 mg PO BID 08/08/22 08/08/22 History (Colace) folic acid 1 mg tablet 1 mg PO DAILY 08/08/22 08/08/22 History heparin (porcine) 5,000 unit/mL 5,000 unit subcut Q8H 08/08/22 08/08/22 History injection solution hydralazine 25 mg tablet 25 mg PO TID 08/08/22 08/08/22 History hydrocodone 5 mg-acetaminophen 325 1 tab PO Q4H PRN Pain 08/08/22 08/08/22 History mg tablet hydroxyzine HCl 10 mg tablet 10 mg PO HS 08/08/22 08/08/22 History insulin glargine 100 unit/mL (3 10 unit subcut HS 08/08/22 08/08/22 History mL) subcutaneous pen (Lantus Solostar U-100 Insulin) insulin regular human 100 unit/mL 1 sliding scale dose subcut ACHS 08/08/22 08/08/22 History injection solution (Humulin R Regular U-100 Insulin) isosorbide mononitrate 30 mg 30 mg PO DAILY 08/08/22 08/08/22 History tablet,extended release 24 hr magnesium hydroxide 400 mg/5 mL 30 ml PO DAILY 08/08/22 08/08/22 History oral suspension (Milk of Magnesia) melatonin 3 mg tablet 3 mg PO HS PRN Insomnia 08/08/22 08/08/22 History polyethylene glycol 3350 17 gram 17 g PO DAILY 08/08/22 08/08/22 History oral powder packet (Miralax) polymyxin B sulfate 10,000 1 drp ophthalmic (eye) QID 08/08/22 08/08/22 History unit-trimethoprim 1 mg/mL eye drops potassium phosphate, monobasic 500 See Rx Instructions .Route .COMPLEX 08/08/22 08/08/22 History mg soluble tablet quetiapine 25 mg tablet (Seroquel) 25 mg PO HS 08/08/22 08/08/22 History sennosides 8.6 mg-docusate sodium 1 tab-cap PO QDL 08/08/22 08/08/22 History 50 mg tablet (Senna with Docusate Sodium) sodium phosphates 19 gram-7 133 ml [place] DAILY PRN Constipation 08/08/22 08/08/22 History gram/118 mL enema (Fleet Enema) tramadol 50 mg tablet 100 mg PO Q6H PRN Pain 08/08/22 08/08/22 History Inpatient Medication List Amlodipine Besylate (Amlodipine Besylate 5 Mg Tab) 10 mg PO DAILY [facility] Stop: 09/08/22 08:59 Last Admin: 08/11/22 14:21 Dose: 10 mg Documented By: Admin: 08/10/22 08:08 Dose: 10 mg Documented By: Admin: 08/09/22 08:10 Dose: 10 mg Documented By: HUMBERTO Aspirin (Aspirin 81 Mg Ectab) 81 mg PO DAILY [facility] Stop: 09/08/22 08:59 Last Admin: 08/11/22 08:22 Dose: 81 mg Documented By: Admin: 08/10/22 08:08 Dose: 81 mg Documented By: Admin: 08/09/22 08:10 Dose: 81 mg Documented By: HUMBERTO Bumetanide (Bumetanide 1 Mg Tab) 2 mg PO BID@6730,3850 [facility] Stop: 09/10/22 16:29 Last Admin: 08/11/22 16:47 Dose: Not Given Documented By: HUMBERTO Cyanocobalamin (Cyanocobalamin (B-12) 500 Mcg Tablet) 1,000 mcg PO DAILY [facility] Stop: 09/08/22 08:59 Last Admin: 08/11/22 08:22 Dose: 1,000 mcg Documented By: Admin: 08/10/22 08:08 Dose: 1,000 mcg Documented By: Admin: 08/09/22 08:09 Dose: 1,000 mcg Documented By: HUMBERTO Dextrose (Dextrose 50% 50 Ml Syringe) 25 - 50 ml IV UD PRN; Protocol PRN Reason: Hypoglycemia Protocol Stop: 09/07/22 17:20 Last Admin: 08/10/22 21:07 Dose: 25 ml Documented By: Admin: 08/09/22 07:32 Dose: 50 ml Documented By: HUMBERTO Docusate Sodium (Docusate Sodium 100 Mg Cap) 100 mg PO BID [facility]O Stop: 09/08/22 08:59 Last Admin: 08/11/22 08:22 Dose: 100 mg Documented By: Admin: 08/10/22 21:13 Dose: 100 mg Documented By: Admin: 08/10/22 08:09 Dose: 100 mg Documented By: Admin: 08/09/22 23:18 Dose: Not Given Documented By: Admin: 08/09/22 08:10 Dose: 100 mg Documented By: HUMBERTO Folic Acid (Folic Acid 1 Mg Tab) 1 mg PO DAILY [facility] Stop: 09/08/22 08:59 Last Admin: 08/11/22 08:22 Dose: 1 mg Documented By: Admin: 08/10/22 08:08 Dose: 1 mg Documented By: Admin: 08/09/22 08:10 Dose: 1 mg Documented By: HUMBERTO Heparin Sodium (Porcine) (Heparin Sod 5,000 Unit/0.5 Ml Vial) 5,000 units SQ BID [facility] Stop: 09/07/22 20:59 Last Admin: 08/11/22 08:22 Dose: 5,000 units Documented By: Admin: 08/10/22 21:12 Dose: 5,000 units Documented By: Admin: 08/10/22 08:08 Dose: 5,000 units Documented By: Admin: 08/09/22 22:44 Dose: 5,000 units Documented By: Admin: 08/09/22 08:10 Dose: 5,000 units Documented By: Admin: 08/08/22 22:39 Dose: 5,000 units Documented By: DORA Hydralazine HCl (Hydralazine Hcl 25 Mg Tab) 25 mg PO TID [facility] Stop: 09/08/22 08:59 Last Admin: 08/11/22 14:51 Dose: Not Given Documented By: Admin: 08/11/22 14:22 Dose: 25 mg Documented By: Admin: 08/10/22 21:12 Dose: 25 mg Documented By: Admin: 08/10/22 14:14 Dose: 25 mg Documented By: Admin: 08/10/22 08:08 Dose: 25 mg Documented By: Admin: 08/09/22 22:43 Dose: 25 mg Documented By: Admin: 08/09/22 13:10 Dose: 25 mg Documented By: Admin: 08/09/22 08:10 Dose: 25 mg Documented By: HUMBERTO Hydroxyzine HCl (Hydroxyzine Hcl 10 Mg Tab) 10 mg PO HS [facility]INGO Stop: 09/08/22 20:59 Last Admin: 08/10/22 21:13 Dose: 10 mg Documented By: Admin: 08/09/22 22:43 Dose: 10 mg Documented By: JONAH Daptomycin 275 mg/ Syringe 5.5 mls @ 2.75 mls/min IV Q48H DOMINGO; Protocol Stop: 08/15/22 17:59 Last Admin: 08/10/22 18:23 Dose: 2.75 mls/min Documented By: Admin: 08/08/22 22:38 Dose: 2.75 mls/min Documented By: DORA Lorazepam 2 mg/ Syringe 2 mls @ 2 mls/min IV Q2H PRN PRN Reason: seizure Stop: 09/08/22 15:44 Last Admin: 08/09/22 16:15 Dose: 2 mls/min Documented By: HUMBERTO Insulin Aspart (Insulin Aspart Per Unit) 0 units SC ACHS DOMINGO; Protocol Stop: 09/07/22 17:20 Last Admin: 08/11/22 17:23 Dose: 5 units Documented By: HUMBERTO Co-signed By: TAMARA Admin: 08/11/22 14:39 Dose: Not Given Documented By: Admin: 08/11/22 08:17 Dose: 4 units Documented By: HUMBERTO Co-signed By: FIORDALIZA Admin: 08/10/22 21:03 Dose: Not Given Documented By: Admin: 08/10/22 17:29 Dose: 6 units Documented By: HUMBERTO Co-signed By: AM Admin: 08/10/22 12:15 Dose: 7 units Documented By: HUMBERTO Co-signed By: LUZ Admin: 08/10/22 08:41 Dose: Not Given Documented By: Admin: 08/09/22 21:08 Dose: Not Given Documented By: Admin: 08/09/22 17:11 Dose: Not Given Documented By: Admin: 08/09/22 12:13 Dose: 2 units Documented By: HUMBERTO Co-signed By: URSULA Admin: 08/09/22 08:08 Dose: Not Given Documented By: Admin: 08/08/22 23:08 Dose: 1 units Documented By: DORA Co-signed By: CHELY Admin: 08/08/22 20:11 Dose: Not Given Documented By: DORA Isosorbide Mononitrate (Isosorbide Powell Extended Rel 30 Mg Tabcr) 30 mg PO DAILY [facility] Stop: 09/08/22 08:59 Last Admin: 08/11/22 14:21 Dose: 30 mg Documented By: Admin: 08/10/22 08:08 Dose: 30 mg Documented By: Admin: 08/09/22 08:10 Dose: 30 mg Documented By: HUMBERTO Levetiracetam (Levetiracetam 500 Mg Tab) 500 mg PO BID [facility]INGO Stop: 09/09/22 20:59 Last Admin: 08/11/22 08:22 Dose: 500 mg Documented By: Admin: 08/10/22 21:13 Dose: 500 mg Documented By: SHER Polymyxin/Trimethoprim Sulfate (Trimethoprim/Polymyxin B) 1 drops OP QID [facility]O Stop: 09/08/22 08:59 Last Admin: 08/11/22 17:26 Dose: 1 drops Documented By: Admin: 08/11/22 14:38 Dose: 1 drops Documented By: Admin: 08/11/22 14:38 Dose: 1 drops Documented By: Admin: 08/10/22 21:14 Dose: 1 drops Documented By: Admin: 08/10/22 18:05 Dose: 1 drops Documented By: Admin: 08/10/22 14:15 Dose: 1 drops Documented By: Admin: 08/10/22 08:09 Dose: 1 drops Documented By: Admin: 08/09/22 22:44 Dose: 1 drops Documented By: Admin: 08/09/22 17:26 Dose: Not Given Documented By: Admin: 08/09/22 13:11 Dose: 1 drops Documented By: Admin: 08/09/22 08:09 Dose: 1 drops Documented By: HUMBERTO Discontinued Medications Epoetin Hardik (Epoetin Hardik 20,000 Units/Ml Vial) 20,000 units IV ONE ONE Stop: 08/11/22 07:13 Last Admin: 08/11/22 11:02 Dose: 20,000 units Documented By: ENDER Furosemide (Furosemide 10 Mg/Ml 10 Ml Vial) 100 mg IV BID [facility] Stop: 09/07/22 20:59 Last Admin: 08/11/22 14:39 Dose: Not Given Documented By: Admin: 08/10/22 21:14 Dose: 100 mg Documented By: Admin: 08/10/22 10:24 Dose: 100 mg Documented By: Admin: 08/09/22 22:43 Dose: 100 mg Documented By: Admin: 08/09/22 08:10 Dose: 100 mg Documented By: Admin: 08/08/22 22:39 Dose: 100 mg Documented By: DORA Heparin Sodium (Porcine) (Heparin Sod (Porcine) 1000 Unit/Ml) 2,000 units IV ONE ONE Stop: 08/11/22 07:01 Last Admin: 08/11/22 11:02 Dose: Not Given Documented By: ENDER Hydralazine HCl (Hydralazine Hcl 20 Mg/Ml Vial) 10 mg IV BID [facility] Stop: 09/07/22 20:59 Last Admin: 08/08/22 22:40 Dose: 10 mg Documented By: DORA Ceftriaxone Sodium 1,000 mg/ (Dextrose) 60 mls @ 100 mls/hr IV Q24H DOMINGO; Protocol Stop: 08/10/22 15:29 Last Infusion: 08/08/22 20:49 Dose: 0 mls/hr Documented By: Admin: 08/08/22 20:13 Dose: 100 mls/hr Documented By: DORA Magnesium Sulfate/Dextrose (Magnesium Sulfate / D5w) 1 gm in 100 mls @ 50 mls/hr IV Q2H [facility]O Stop: 08/08/22 21:59 Last Infusion: 08/09/22 00:38 Dose: 0 mls/hr Documented By: Admin: 08/08/22 22:38 Dose: 50 mls/hr Documented By: Infusion: 08/08/22 22:07 Dose: 0 mls/hr Documented By: Admin: 08/08/22 20:07 Dose: 50 mls/hr Documented By: DORA Cefepime HCl 1,000 mg/ Syringe 10 mls @ 5 mls/min IV Q24H DOMINGO; Protocol Stop: 08/16/22 08:59 Last Admin: 08/09/22 09:48 Dose: 5 mls/min Documented By: HUMBERTO Levetiracetam 1,000 mg/ Sodium (Chloride) 110 mls @ 440 mls/hr IV NOW STA Stop: 08/09/22 15:59 Last Infusion: 08/09/22 17:26 Dose: 0 mls/hr Documented By: Admin: 08/09/22 16:14 Dose: 440 mls/hr Documented By: HUMBERTO Levetiracetam 750 mg/ Sodium (Chloride) 107.5 mls @ 420 mls/hr IV BID [facility]O Stop: 09/08/22 22:59 Last Admin: 08/10/22 00:42 Dose: Not Given Documented By: JONAH Insulin Aspart (Insulin Aspart Per Unit) 0 units SC 0000,0400 [facility] Stop: 08/10/22 04:01 Last Admin: 08/10/22 03:57 Dose: Not Given Documented By: JONAH Co-signed By: JENS Admin: 08/10/22 00:50 Dose: 1 units Documented By: JONAH Co-signed By: JENS Insulin Glargine (Lantus Per Unit Charge) 5 units SQ HS [facility] Stop: 09/07/22 20:59 Last Admin: 08/08/22 23:09 Dose: 5 units Documented By: DORA Co-signed By: CHELY Levetiracetam (Levetiracetam 250 Mg Tab) 750 mg PO BID [facility] Stop: 09/08/22 20:59 Last Admin: 08/10/22 08:08 Dose: 750 mg Documented By: Admin: 08/09/22 22:43 Dose: 750 mg Documented By: JONAH Levetiracetam (Levetiracetam 500 Mg Tab) 500 mg PO ONE ONE Stop: 08/11/22 16:46 Last Admin: 08/11/22 17:26 Dose: 500 mg Documented By: HMUBERTO Naloxone HCl (Naloxone Hcl 0.4 Mg/1 Ml Vial/Carp) 0.4 mg IV NOW STA Stop: 08/08/22 11:17 Last Admin: 08/08/22 12:06 Dose: 0.4 mg Documented By: MELINDA Potassium Chloride (Potassium Chloride Crtab 20 Meq Tabcr) 20 meq PO ONE ONE Stop: 08/09/22 09:50 Last Admin: 08/09/22 10:06 Dose: 20 meq Documented By: HUMBERTO Potassium Chloride (Potassium Chloride Crtab 20 Meq Tabcr) 20 meq PO ONE ONE Stop: 08/11/22 08:53 Last Admin: 08/11/22 14:28 Dose: 20 meq Documented By: HUMBERTO Description This is a 21 electrode EEG with a single channel dedicated to limited EKG. The electrodes were placed in accordance with the International 10-20 system. REPORT: At the onset of the EEG the patient is awake. The background is symmetric. The posterior dominant rhythm is not well seen and predominantly consist of 5-7 Hz theta activity with signficant superimposed myogenic artifact at times obscuring the study. There is also motion artifact due to head turning. At times there is semi periodic right sided sharply contoured waves that appear consistent with PLEDS maxixmal in the rigth temporal head region. Interpretation IMPRESSION: THis is an abnormal EEG in a patient wiht altered mentation due to intermittent right sided sharp waves which at times are semi periodic and resemble periodic epileptiform discharges (PLEDS). This is EEG is technically limited as times obscured by myogenic artifact. Differential diagnosis includes right sided structural lesion such as stroke. Other differential diagnosis also less common include encephalitis such as herpes simple encephalitis (HSV). Would recommend MRI brain for further evaluation.
[2022-08-11] MEDS: hydrOXYzine HCl 10 MG TAB PO SCH (20:29)
[2022-08-11] MEDS ORDERED: LANTUS PER UNIT CHARGE SQ SCH (21:00)
[2022-08-12 07:07] LABS: BUN Creatinine Ratio 7.6 (10-20); Calcium 7.9 mg/dl (8.5-10.1); Creatinine Clr Calc Pharmacy 30.5 ml/min; Est GFR (African American) 39.5 ml/min; Est GFR (Non-African American) 34.1 ml/min; Potassium 2.9 mmol/L (3.5-5.1)
[2022-08-12] MEDS: DEXTROSE 50% 50 ML SYRINGE IV PRN ×2 (07:17→20:20)
--- NOTE | 2022-08-12 08:09 | Nephrology Progress Note ---
Date of Service August 12, 2022 Assessment & Plan (1) ESRD (end stage renal disease) on dialysis: Plan: ESRD dialyzed on Thursday schedule. He was transferred from rehab due to altered mental status. He had dialysis on 08/08/2022, 08/11. Electrolytes remarkable for very low K and with worsening/ongoing volume overload. new to dialysis this month after extended/complicated course including [facility] [place] pancreate[place] this summer, now a type I diabetic, then 6 wks IV abtx started in [place] for post operative abscess, then renal bx/ urgent start to dialysis this month; details of bx and start to HD not available. - eval for dialysis tomorrow > ? if having renal recovery; still w/ volume OL today though BP improved and this despite 2.5L UF 08/11 -gave K; low BG noted -neuro cont to follow -daily bmp, CBC -slightly more aggressive fluid removal/long tx d/t XR findings >no diuretics recommended at this time given low K/hypokalemia > recheck bmp in for this PM >>asked for [facility] D/C summary from before he went to [facility] > to get renal bx report and renal consult, last neph note as well as d/c summary >need to figure out what workup for renal failure may be pending still ;ordered repeat urine studies and ESR to start and prot /creat here Admission and Anticipated Discharge Date Admission Date: August 08, 2022 Subjective extremely low BG this am >24; also w/ very low K today; neuro following for new onset seizure, EEG pending; pt unable/unwilling to give ROS Review of Systems Review of Systems: Unobtainable due to cognitive status Physical Exam Constitutional: well developed and + frail appearing; no acute distress eating heartily w/ 2 hands/ no utensils/ licking bowls Eyes: EOM intact bilaterally ENMT: Ears: no external ear abnormality Nose: no external nose abnormality Mouth: + dry oral mucous membranes Neck: no nuchal rigidity Respiratory: normal respiratory effort Auscultation: + diminished lung sounds Cardiovascular: Rate/Rhythm: regular rate and regular rhythm Extremities: + edema (2+ ankle edema; L>R puffy hands) Gastrointestinal (Abdomen): Inspection/Auscultation: normal bowel sounds Percussion/Palpation: abdomen soft; abdomen nontender Musculoskeletal: Extremities: + abnormal strength (not moving RLE for me) Skin: no rashes, warm and dry Neurologic: holding bowl 2 hands; tremor resting R hand Psychiatric: alert, faith, tracks/ hears but aphasic Results & Data ([facility]) Vital Signs (Past 12 Hours) Vital Signs Temp Pulse Resp BP Pulse Ox O2 Del Method 08/12/22 07:58 36.7 C 71 18 132/61 95 Room Air 08/12/22 03:32 37.1 C 62 18 130/52 L 95 Room Air 08/11/22 23:40 Room Air 08/11/22 23:08 37.1 C 74 20 132/62 95 Room Air Laboratory Results 08/11/22 06:00 08/12/22 05:57
[2022-08-12] MEDS: INSULIN ASPART PER UNIT SC SCH ×2 (08:23→12:26)
[2022-08-12] MEDS: ASPIRIN 81 MG ECTAB PO SCH (08:36)
[2022-08-12] MEDS: amLODIPine BESYLATE 5 MG TAB PO SCH (08:36)
[2022-08-12] MEDS: CYANOCOBALAMIN (B-12) 500 MCG TABLET PO SCH (08:36)
[2022-08-12] MEDS: FOLIC ACID 1 MG TAB PO SCH (08:37)
[2022-08-12] MEDS: HEPARIN SOD 5,000 UNIT/0.5 ML VIAL SQ SCH ×3 (08:37→20:47)
[2022-08-12] MEDS: ISOSORBIDE MONO EXTENDED REL 30 MG TABCR PO SCH (08:37)
[2022-08-12] MEDS: levETIRAcetam 500 MG TAB PO SCH ×2 (08:37→20:02)
[2022-08-12] MEDS: hydrALAZINE HCL 25 MG TAB PO SCH ×4 (08:37→21:16)
[2022-08-12] MEDS: TRIMETHOPRIM/POLYMYXIN B OP SCH ×4 (08:37→20:03)
[2022-08-12] MEDS: DOCUSATE SODIUM 100 MG CAP PO SCH ×3 (08:37→21:16)
[2022-08-12] MEDS: POTASSIUM CHLORIDE / WTR 10 MEQ/100 ML PLCT IV SCH ×3 (09:01→11:26)
[2022-08-12] MEDS ORDERED: POTASSIUM CHLORIDE CRTAB 20 MEQ TABCR PO ONE (09:30)
--- NOTE | 2022-08-12 10:06 | Magnetic Resonance Report ---
MRI OF THE BRAIN WITHOUT IV CONTRAST CLINICAL HISTORY: Seizure. COMPARISON STUDY: CT of the brain dated 08/10/2022. TECHNIQUE: MRI of the brain was performed utilizing various T1 and T2-weighted sequences in the axial , sagittal, and coronal planes. IV contrast was not administered for this examination. The examinatio n is performed using the seizure protocol. FINDINGS: Brain parenchyma: There is age-related involutional change noting advanced confluent subcortical and periventricular microangiopathic disease. There is no hemorrhage or mass effect. There is no restrict ed diffusion to suggest acute ischemia. Strickland-white matter differentiation is preserved. No extra-axia l fluid collection is seen. The cerebellar tonsils are normal in configuration. The hippocampi are no rmal and symmetric. Ventricles, sulci, and cisterns: Prominent secondary to involutional change. Pituitary and sella: Unremarkable. Intracranial vasculature: Normal flow voids are maintained at the skull base. Orbits: The bony orbits are grossly intact. Orbital contents are normal in appearance noting bilatera l ocular lens implants. Sinuses and mastoids: Clear. Calvarium: Unremarkable. Cervical cord: Partially visualized cervical spinal cord is normal in morphology and signal intensity . IMPRESSION: No acute intracranial abnormality. ACT 112: Negative or not required by law. Electronically signed by: Jose Miguel Pan M.D. 08/12/2022 10:05 AM
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
[2022-08-12 16:28] LABS: Calcium 7.9 mg/dl (8.5-10.1); Creatinine Clr Calc Pharmacy 24.6 ml/min; Est GFR (African American) 30.5 ml/min; Est GFR (Non-African American) 26.3 ml/min; Potassium 3.9 mmol/L (3.5-5.1)
[2022-08-12] MEDS ORDERED: INSULIN ASPART PER UNIT SC SCH ×2 (16:30→21:00)
--- NOTE | 2022-08-12 16:43 | Progress Notes ---
SUBJECTIVE: I am seeing the patient in followup of 2 seizures with delirium. He is much more awake and alert and cooperative today. I saw him yesterday during dialysis. His EEG showed right sided PL EDs suggestive of a structural defect such as a stroke. Other differential including encephalitis. The patient underwent an MRI of the brain last evening, which showed no acute abnormality and no abno rmalities in the temporal lobes. His last white count was normal. His T-max was 37.1. He remains o n Keppra 500 b.i.d. Tramadol has been discontinued. He is awake and alert. He is very distractible . He will tell me his name, but he tells me his 's name as well as his children. He knows that he is in the hospital. Follows some simple commands. Naming is adequate. OBJECTIVE: His neck is supple. There is normal extraocular motility, visual simeon and facial symme try. While he is slow to respond, he can lift his arms symmetrically. There is no drift. There is equal rapid alternating movements. He lifts his left lower extremity adequately. His reflexes are s ymmetric and the left toe was not upgoing. I do not see any seizure activity. IMPRESSION AND PLAN: New onset seizure with PLEDs. PLEDs can suggest a structural defect such as str makenzie, it can be seen in HSV encephalitis. He appears to be improving and there is no evidence of abno rmal signal in the right temporal lobe. My plan is to repeat an EEG tomorrow to see if it improves. I will attempt to contact his family regarding his baseline etiology of his renal failure. Dr. Choco gonzalez brings up a good point that the patient wonders whether or not seizure as well as the etiology o f his renal dysfunction could be related. We will need to explore that with the family. We will fol low with you. Job ID: [id number]
[2022-08-12] MEDS: DAPTOmycin 275 MG in SYRINGE 0 ML IV SCH (17:15)
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
[2022-08-12] MEDS: hydrOXYzine HCl 10 MG TAB PO SCH ×3 (20:03→21:16)
[2022-08-12] MEDS ORDERED: levETIRAcetam 500 MG in 0.9 % SODIUM CHLORIDE 100 ML IV STA (20:45)
[2022-08-13] MEDS: DEXTROSE 50% 50 ML SYRINGE IV PRN (00:18)
[2022-08-13 06:25] LABS: BUN Creatinine Ratio 8.4 (10-20); Calcium 7.7 mg/dl (8.5-10.1); Creatinine Clr Calc Pharmacy 22.8 ml/min; Potassium 3.7 mmol/L (3.5-5.1)
[2022-08-13] MEDS: ASPIRIN 81 MG ECTAB PO SCH (08:45)
[2022-08-13] MEDS: ISOSORBIDE MONO EXTENDED REL 30 MG TABCR PO SCH (08:45)
[2022-08-13] MEDS: FOLIC ACID 1 MG TAB PO SCH (08:45)
[2022-08-13] MEDS: hydrALAZINE HCL 25 MG TAB PO SCH ×3 (08:45→20:23)
[2022-08-13] MEDS: CYANOCOBALAMIN (B-12) 500 MCG TABLET PO SCH (08:45)
[2022-08-13] MEDS: amLODIPine BESYLATE 5 MG TAB PO SCH (08:45)
[2022-08-13] MEDS: HEPARIN SOD 5,000 UNIT/0.5 ML VIAL SQ SCH (08:45)
[2022-08-13] MEDS: DOCUSATE SODIUM 100 MG CAP PO SCH (08:45)
[2022-08-13] MEDS: TRIMETHOPRIM/POLYMYXIN B OP SCH ×3 (08:46→17:59)
[2022-08-13] MEDS: levETIRAcetam 500 MG TAB PO SCH ×2 (08:46→20:23)
[2022-08-13] MEDS: INSULIN ASPART PER UNIT SC SCH ×3 (09:39→17:21)
--- NOTE | 2022-08-13 10:57 | Electroencephalogram ---
EEG Procedure Note Date of Service August 13, 2022 Start / End Times Start Time: 07:29 End Time: 07:[address] Alicia Johns History A 77-year-old male with encephalopathy and witnessed general tonic-clonic seizure. Patient is now on Keppra. Recent EEG showed right-sided periodic lateralized epileptiform discharges. EEG performed for evaluation of epileptiform activity. Home Medication List Medication Instructions Recorded Confirmed Type acetaminophen 325 mg tablet 650 mg PO QID PRN Pain 08/08/22 08/08/22 History amlodipine 10 mg tablet 10 mg PO DAILY 08/08/22 08/08/22 History aspirin 81 mg tablet,delayed 81 mg PO DAILY 08/08/22 08/08/22 History release atorvastatin 10 mg tablet 10 mg PO HS 08/08/22 08/08/22 History bisacodyl 10 mg rectal suppository 10 mg IA DAILY PRN Constipation 08/08/22 08/08/22 History bumetanide 2 mg tablet 2 mg PO BID 08/08/22 08/08/22 History cyanocobalamin (vitamin B-12) 1,000 mcg PO DAILY 08/08/22 08/08/22 History 1,000 mcg tablet docusate sodium 100 mg capsule 100 mg PO BID 08/08/22 08/08/22 History (Colace) folic acid 1 mg tablet 1 mg PO DAILY 08/08/22 08/08/22 History heparin (porcine) 5,000 unit/mL 5,000 unit subcut Q8H 08/08/22 08/08/22 History injection solution hydralazine 25 mg tablet 25 mg PO TID 08/08/22 08/08/22 History hydrocodone 5 mg-acetaminophen 325 1 tab PO Q4H PRN Pain 08/08/22 08/08/22 History mg tablet hydroxyzine HCl 10 mg tablet 10 mg PO HS 08/08/22 08/08/22 History insulin glargine 100 unit/mL (3 10 unit subcut HS 08/08/22 08/08/22 History mL) subcutaneous pen (Lantus Solostar U-100 Insulin) insulin regular human 100 unit/mL 1 sliding scale dose subcut ACHS 08/08/22 08/08/22 History injection solution (Humulin R Regular U-100 Insulin) isosorbide mononitrate 30 mg 30 mg PO DAILY 08/08/22 08/08/22 History tablet,extended release 24 hr magnesium hydroxide 400 mg/5 mL 30 ml PO DAILY 08/08/22 08/08/22 History oral suspension (Milk of Magnesia) melatonin 3 mg tablet 3 mg PO HS PRN Insomnia 08/08/22 08/08/22 History polyethylene glycol 3350 17 gram 17 g PO DAILY 08/08/22 08/08/22 History oral powder packet (Miralax) polymyxin B sulfate 10,000 1 drp ophthalmic (eye) QID 08/08/22 08/08/22 History unit-trimethoprim 1 mg/mL eye drops potassium phosphate, monobasic 500 See Rx Instructions .Route .COMPLEX 08/08/22 08/08/22 History mg soluble tablet quetiapine 25 mg tablet (Seroquel) 25 mg PO HS 08/08/22 08/08/22 History sennosides 8.6 mg-docusate sodium 1 tab-cap PO QDL 08/08/22 08/08/22 History 50 mg tablet (Senna with Docusate Sodium) sodium phosphates 19 gram-7 133 ml IA DAILY PRN Constipation 08/08/22 08/08/22 History gram/118 mL enema (Fleet Enema) tramadol 50 mg tablet 100 mg PO Q6H PRN Pain 08/08/22 08/08/22 History Inpatient Medication List Amlodipine Besylate (Amlodipine Besylate 5 Mg Tab) 10 mg PO DAILY DOMINGO Stop: 09/08/22 08:59 Last Admin: 08/13/22 08:45 Dose: 10 mg Documented By: Admin: 08/12/22 08:36 Dose: 10 mg Documented By: Admin: 08/11/22 14:21 Dose: 10 mg Documented By: Admin: 08/10/22 08:08 Dose: 10 mg Documented By: Admin: 08/09/22 08:10 Dose: 10 mg Documented By: HUMBERTO Aspirin (Aspirin 81 Mg Ectab) 81 mg PO DAILY DOMINGO Stop: 09/08/22 08:59 Last Admin: 08/13/22 08:45 Dose: 81 mg Documented By: Admin: 08/12/22 08:36 Dose: 81 mg Documented By: Admin: 08/11/22 08:22 Dose: 81 mg Documented By: Admin: 08/10/22 08:08 Dose: 81 mg Documented By: Admin: 08/09/22 08:10 Dose: 81 mg Documented By: HUMBETRO Bumetanide (Bumetanide 1 Mg Tab) 2 mg PO BID@0730,1630 DOMINGO Stop: 09/10/22 16:29 Last Admin: 08/11/22 16:47 Dose: Not Given Documented By: HUMBERTO Cyanocobalamin (Cyanocobalamin (B-12) 500 Mcg Tablet) 1,000 mcg PO DAILY DOMINGO Stop: 09/08/22 08:59 Last Admin: 08/13/22 08:45 Dose: 1,000 mcg Documented By: Admin: 08/12/22 08:36 Dose: 1,000 mcg Documented By: Admin: 08/11/22 08:22 Dose: 1,000 mcg Documented By: Admin: 08/10/22 08:08 Dose: 1,000 mcg Documented By: Admin: 08/09/22 08:09 Dose: 1,000 mcg Documented By: HUMBERTO Dextrose (Dextrose 50% 50 Ml Syringe) 25 - 50 ml IV UD PRN; Protocol PRN Reason: Hypoglycemia Protocol Stop: 09/07/22 17:20 Last Admin: 08/13/22 00:18 Dose: 50 ml Documented By: Admin: 08/12/22 20:20 Dose: 50 ml Documented By: Admin: 08/12/22 07:17 Dose: 50 ml Documented By: Admin: 08/10/22 21:07 Dose: 25 ml Documented By: Admin: 08/09/22 07:32 Dose: 50 ml Documented By: HUMBERTO Docusate Sodium (Docusate Sodium 100 Mg Cap) 100 mg PO BID DOMINGO Stop: 09/08/22 08:59 Last Admin: 08/13/22 08:45 Dose: 100 mg Documented By: Admin: 08/12/22 21:16 Dose: Not Given Documented By: Admin: 08/12/22 08:37 Dose: 100 mg Documented By: Admin: 08/11/22 20:29 Dose: 100 mg Documented By: Admin: 08/11/22 08:22 Dose: 100 mg Documented By: Admin: 08/10/22 21:13 Dose: 100 mg Documented By: Admin: 08/10/22 08:09 Dose: 100 mg Documented By: Admin: 08/09/22 23:18 Dose: Not Given Documented By: Admin: 08/09/22 08:10 Dose: 100 mg Documented By: HUMBERTO Folic Acid (Folic Acid 1 Mg Tab) 1 mg PO DAILY DOMINGO Stop: 09/08/22 08:59 Last Admin: 08/13/22 08:45 Dose: 1 mg Documented By: Admin: 08/12/22 08:37 Dose: 1 mg Documented By: Admin: 08/11/22 08:22 Dose: 1 mg Documented By: Admin: 08/10/22 08:08 Dose: 1 mg Documented By: Admin: 08/09/22 08:10 Dose: 1 mg Documented By: HUMBERTO Heparin Sodium (Porcine) (Heparin Sod 5,000 Unit/0.5 Ml Vial) 5,000 units SQ BID DOMINGO Stop: 09/07/22 20:59 Last Admin: 08/13/22 08:45 Dose: 5,000 units Documented By: Admin: 08/12/22 20:47 Dose: 5,000 units Documented By: Admin: 08/12/22 08:37 Dose: 5,000 units Documented By: Admin: 08/11/22 20:30 Dose: 5,000 units Documented By: Admin: 08/11/22 08:22 Dose: 5,000 units Documented By: Admin: 08/10/22 21:12 Dose: 5,000 units Documented By: Admin: 08/10/22 08:08 Dose: 5,000 units Documented By: Admin: 08/09/22 22:44 Dose: 5,000 units Documented By: Admin: 08/09/22 08:10 Dose: 5,000 units Documented By: Admin: 08/08/22 22:39 Dose: 5,000 units Documented By: [facility] Hydralazine HCl (Hydralazine Hcl 25 Mg Tab) 25 mg PO TID DOMINGO Stop: 09/08/22 08:59 Last Admin: 08/13/22 08:45 Dose: 25 mg Documented By: Admin: 08/12/22 21:16 Dose: Not Given Documented By: Admin: 08/12/22 14:02 Dose: 25 mg Documented By: Admin: 08/12/22 08:37 Dose: 25 mg Documented By: Admin: 08/11/22 20:29 Dose: 25 mg Documented By: Admin: 08/11/22 14:51 Dose: Not Given Documented By: Admin: 08/11/22 14:22 Dose: 25 mg Documented By: Admin: 08/10/22 21:12 Dose: 25 mg Documented By: Admin: 08/10/22 14:14 Dose: 25 mg Documented By: Admin: 08/10/22 08:08 Dose: 25 mg Documented By: Admin: 08/09/22 22:43 Dose: 25 mg Documented By: Admin: 08/09/22 13:10 Dose: 25 mg Documented By: Admin: 08/09/22 08:10 Dose: 25 mg Documented By: HUMBERTO Hydroxyzine HCl (Hydroxyzine Hcl 10 Mg Tab) 10 mg PO HS DOMINGO Stop: 09/08/22 20:59 Last Admin: 08/12/22 21:16 Dose: Not Given Documented By: Admin: 08/12/22 21:13 Dose: Not Given Documented By: Admin: 08/10/22 21:13 Dose: 10 mg Documented By: Admin: 08/09/22 22:43 Dose: 10 mg Documented By: JONAH Daptomycin 275 mg/ Syringe 5.5 mls @ 2.75 mls/min IV Q48H DOMINGO; Protocol Stop: 08/15/22 17:59 Last Admin: 08/12/22 17:15 Dose: 2.75 mls/min Documented By: Admin: 08/10/22 18:23 Dose: 2.75 mls/min Documented By: Admin: 08/08/22 22:38 Dose: 2.75 mls/min Documented By: DORA Lorazepam 2 mg/ Syringe 2 mls @ 2 mls/min IV Q2H PRN PRN Reason: seizure Stop: 09/08/22 15:44 Last Admin: 08/09/22 16:15 Dose: 2 mls/min Documented By: HUMBERTO Insulin Aspart (Insulin Aspart Per Unit) 0 - 3 units SC AC DOMINGO; Protocol Stop: 09/11/22 16:29 Last Admin: 08/13/22 09:39 Dose: Not Given Documented By: KTS Isosorbide Mononitrate (Isosorbide Griggs Extended Rel 30 Mg Tabcr) 30 mg PO DAILY [facility] Stop: 09/08/22 08:59 Last Admin: 08/13/22 08:45 Dose: 30 mg Documented By: Admin: 08/12/22 08:37 Dose: 30 mg Documented By: Admin: 08/11/22 14:21 Dose: 30 mg Documented By: Admin: 08/10/22 08:08 Dose: 30 mg Documented By: Admin: 08/09/22 08:10 Dose: 30 mg Documented By: HUMBERTO Levetiracetam (Levetiracetam 500 Mg Tab) 500 mg PO BID [facility] Stop: 09/12/22 08:59 Last Admin: 08/13/22 08:46 Dose: 500 mg Documented By: SVEN Polymyxin/Trimethoprim Sulfate (Trimethoprim/Polymyxin B) 1 drops OP QID DOMINGO Stop: 09/08/22 08:59 Last Admin: 08/13/22 08:46 Dose: 1 drops Documented By: Admin: 08/12/22 20:03 Dose: 1 drops Documented By: [facility] Admin: 08/12/22 17:00 Dose: 1 drops Documented By: Admin: 08/12/22 13:04 Dose: 1 drops Documented By: Admin: 08/12/22 08:37 Dose: 1 drops Documented By: Admin: 08/11/22 20:30 Dose: 1 drops Documented By: Admin: 08/11/22 17:26 Dose: 1 drops Documented By: Admin: 08/11/22 14:38 Dose: 1 drops Documented By: Admin: 08/11/22 14:38 Dose: 1 drops Documented By: Admin: 08/10/22 21:14 Dose: 1 drops Documented By: Admin: 08/10/22 18:05 Dose: 1 drops Documented By: Admin: 08/10/22 14:15 Dose: 1 drops Documented By: Admin: 08/10/22 08:09 Dose: 1 drops Documented By: Admin: 08/09/22 22:44 Dose: 1 drops Documented By: Admin: 08/09/22 17:26 Dose: Not Given Documented By: Admin: 08/09/22 13:11 Dose: 1 drops Documented By: Admin: 08/09/22 08:09 Dose: 1 drops Documented By: HUMBERTO Discontinued Medications Epoetin Hardik (Epoetin Hardik 20,000 Units/Ml Vial) 20,000 units IV ONE ONE Stop: 08/11/22 07:13 Last Admin: 08/11/22 11:02 Dose: 20,000 units Documented By: ENDER Furosemide (Furosemide 10 Mg/Ml 10 Ml Vial) 100 mg IV BID DOMINGO Stop: 09/07/22 20:59 Last Admin: 08/11/22 14:39 Dose: Not Given Documented By: Admin: 08/10/22 21:14 Dose: 100 mg Documented By: Admin: 08/10/22 10:24 Dose: 100 mg Documented By: Admin: 08/09/22 22:43 Dose: 100 mg Documented By: Admin: 08/09/22 08:10 Dose: 100 mg Documented By: Admin: 08/08/22 22:39 Dose: 100 mg Documented By: DORA Heparin Sodium (Porcine) (Heparin Sod (Porcine) 1000 Unit/Ml) 2,000 units IV ONE ONE Stop: 08/11/22 07:01 Last Admin: 08/11/22 11:02 Dose: Not Given Documented By: ENDER Hydralazine HCl (Hydralazine Hcl 20 Mg/Ml Vial) 10 mg IV BID DOMINGO Stop: 09/07/22 20:59 Last Admin: 08/08/22 22:40 Dose: 10 mg Documented By: DORA Ceftriaxone Sodium 1,000 mg/ (Dextrose) 60 mls @ 100 mls/hr IV Q24H DOMINGO; Protocol Stop: 08/10/22 15:29 Last Infusion: 08/08/22 20:49 Dose: 0 mls/hr Documented By: Admin: 08/08/22 20:13 Dose: 100 mls/hr Documented By: DORA Magnesium Sulfate/Dextrose (Magnesium Sulfate / D5w) 1 gm in 100 mls @ 50 mls/hr IV Q2H DOMINGO Stop: 08/08/22 21:59 Last Infusion: 08/09/22 00:38 Dose: 0 mls/hr Documented By: Admin: 08/08/22 22:38 Dose: 50 mls/hr Documented By: Infusion: 08/08/22 22:07 Dose: 0 mls/hr Documented By: Admin: 08/08/22 20:07 Dose: 50 mls/hr Documented By: DORA Cefepime HCl 1,000 mg/ Syringe 10 mls @ 5 mls/min IV Q24H DOMINGO; Protocol Stop: 08/16/22 08:59 Last Admin: 08/09/22 09:48 Dose: 5 mls/min Documented By: HUMBERTO Levetiracetam 1,000 mg/ Sodium (Chloride) 110 mls @ 440 mls/hr IV NOW STA Stop: 08/09/22 15:59 Last Infusion: 08/09/22 17:26 Dose: 0 mls/hr Documented By: Admin: 08/09/22 16:14 Dose: 440 mls/hr Documented By: HUMBERTO Levetiracetam 750 mg/ Sodium (Chloride) 107.5 mls @ 420 mls/hr IV BID DOMINGO Stop: 09/08/22 22:59 Last Admin: 08/10/22 00:42 Dose: Not Given Documented By: JONAH Potassium Chloride (K [place] / Wtr) 10 meq in 100 mls @ 100 mls/hr IV Q1H DOMINGO Stop: 08/12/22 11:29 Last Infusion: 08/12/22 12:37 Dose: 0 mls/hr Documented By: Admin: 08/12/22 11:26 Dose: 100 mls/hr Documented By: Infusion: 08/12/22 11:24 Dose: 0 mls/hr Documented By: Admin: 08/12/22 10:13 Dose: 100 mls/hr Documented By: Infusion: 08/12/22 10:13 Dose: 0 mls/hr Documented By: Admin: 08/12/22 09:01 Dose: 100 mls/hr Documented By: SVEN Levetiracetam 500 mg/ Sodium (Chloride) 105 mls @ 440 mls/hr IV NOW STA Stop: 08/12/22 20:59 Last Infusion: 08/12/22 21:48 Dose: 0 mls/hr Documented By: Admin: 08/12/22 21:10 Dose: 440 mls/hr Documented By: FABIO Insulin Aspart (Insulin Aspart Per Unit) 0 units SC ACHS DOMINGO; Protocol Stop: 09/07/22 17:20 Last Admin: 08/12/22 12:26 Dose: 7 units Documented By: SVEN Co-signed By: BETTE Admin: 08/12/22 08:23 Dose: Not Given Documented By: Admin: 08/11/22 22:56 Dose: 5 units Documented By: FABIO Co-signed By: CHELY Admin: 08/11/22 17:23 Dose: 5 units Documented By: HUMBERTO Co-signed By: TAMARA Admin: 08/11/22 14:39 Dose: Not Given Documented By: Admin: 08/11/22 08:17 Dose: 4 units Documented By: HUMBERTO Co-signed By: FIORDALIZA Admin: 08/10/22 21:03 Dose: Not Given Documented By: Admin: 08/10/22 17:29 Dose: 6 units Documented By: HUMBERTO Co-signed By: AM Admin: 08/10/22 12:15 Dose: 7 units Documented By: HUMBERTO Co-signed By: LUZ Admin: 08/10/22 08:41 Dose: Not Given Documented By: Admin: 08/09/22 21:08 Dose: Not Given Documented By: Admin: 08/09/22 17:11 Dose: Not Given Documented By: Admin: 08/09/22 12:13 Dose: 2 units Documented By: HUMBERTO Co-signed By: URSULA Admin: 08/09/22 08:08 Dose: Not Given Documented By: Admin: 08/08/22 23:08 Dose: 1 units Documented By: DORA Co-signed By: CHELY Admin: 08/08/22 20:11 Dose: Not Given Documented By: DORA Insulin Aspart (Insulin Aspart Per Unit) 0 units SC 0000,0400 [place]O Stop: 08/10/22 04:01 Last Admin: 08/10/22 03:57 Dose: Not Given Documented By: JONAH Co-signed By: JENS Admin: 08/10/22 00:50 Dose: 1 units Documented By: JONAH Co-signed By: JENS Insulin Aspart (Insulin Aspart Per Unit) 0 units SC AC DOMINGO; Protocol Stop: 09/11/22 16:29 Last Admin: 08/12/22 17:15 Dose: 5 units Documented By: SVEN Co-signed By: BETTE Insulin Glargine (Lantus Per Unit Charge) 5 units SQ HS [place]INGO Stop: 09/07/22 20:59 Last Admin: 08/08/22 23:09 Dose: 5 units Documented By: DORA Co-signed By: CHELY Insulin Glargine (Lantus Per Unit Charge) 2 units SQ HS [facility]; Protocol Stop: 09/10/22 20:59 Last Admin: 08/11/22 22:56 Dose: 2 units Documented By: FABIO Co-signed By: CHELY Levetiracetam (Levetiracetam 250 Mg Tab) 750 mg PO BID [facility] Stop: 09/08/22 20:59 Last Admin: 08/10/22 08:08 Dose: 750 mg Documented By: Admin: 08/09/22 22:43 Dose: 750 mg Documented By: JONAH Levetiracetam (Levetiracetam 500 Mg Tab) 500 mg PO BID [facility] Stop: 09/09/22 20:59 Last Admin: 08/12/22 08:37 Dose: 500 mg Documented By: Admin: 08/11/22 20:29 Dose: 500 mg Documented By: Admin: 08/11/22 08:22 Dose: 500 mg Documented By: Admin: 08/10/22 21:13 Dose: 500 mg Documented By: SHER Levetiracetam (Levetiracetam 500 Mg Tab) 500 mg PO ONE ONE Stop: 08/11/22 16:46 Last Admin: 08/11/22 17:26 Dose: 500 mg Documented By: HUMBERTO Naloxone HCl (Naloxone Hcl 0.4 Mg/1 Ml Vial/Carp) 0.4 mg IV NOW STA Stop: 08/08/22 11:17 Last Admin: 08/08/22 12:06 Dose: 0.4 mg Documented By: MELINDA Potassium Chloride (Potassium Chloride Crtab 20 Meq Tabcr) 20 meq PO ONE ONE Stop: 08/09/22 09:50 Last Admin: 08/09/22 10:06 Dose: 20 meq Documented By: HUMBERTO Potassium Chloride (Potassium Chloride Crtab 20 Meq Tabcr) 20 meq PO ONE ONE Stop: 08/11/22 08:53 Last Admin: 08/11/22 14:28 Dose: 20 meq Documented By: HUMBERTO Potassium Chloride (Potassium Chloride Crtab 20 Meq Tabcr) 20 meq PO ONE ONE Stop: 08/12/22 09:31 Last Admin: 08/12/22 09:33 Dose: 20 meq Documented By: SVEN Description This is a 21 electrode EEG with a single channel dedicated to limited EKG. The electrodes were placed in accordance with the International 10-20 system. REPORT: At the onset of the EEG the patient is in an altered mental state. The background is disorganized with loss of the normal anterior to posterior gradient. The background predominantly consists of polymorphic 3-5 hertz theta delta activity with periodic right-sided frontally predominant epileptiform discharges. No stage 2 sleep transients are seen. On review of the video the patient appears to be sleeping. Interpretation IMPRESSION: This is an abnormal routine EEG in a patient with altered mentation due to frequent right frontal periodic lateralized epileptiform discharges (PLEDs) at times occurring with a frequency of 1 Hz. The epileptiform discharges are more frequent compared to the previous EEG performed on 08/11/22.
--- NOTE | 2022-08-13 12:19 | Nephrology Progress Note ---
Date of Service August 13, 2022 Assessment & Plan (1) Acute renal failure on dialysis: Plan: Acute renal failure on dialysis, up to now dialyzed on Thursday schedule. He was transferred from rehab due to altered mental status. He had dialysis on 08/08/2022, 08/11 (with 2.5L UF). Electrolytes acceptable and with labile but generally higher blood pressures, edema concerning for ongoing volume overload. new to dialysis this month after extended/complicated course including [facility] pancreatectomy / Whipple procedure this summer, now a type I diabetic, then 6 wks IV abtx started in [facility] for post operative abscess, then renal bx/ urgent start to dialysis this month at [facility]; details of bx and start to HD not available. - eval for dialysis tomorrow > ? if having renal recovery; still w/ volume OL likely from XR though labs fairly stable and K improved today >> trial of lasix; hard to get accurate I/O but will try for now to avoid bermudez >asked team to count # voids -low BG noted > will start bumex 2 mg IV bid and give K standing 20 mEq bid po >BP incresaeing some and will increase bumex frequency/dose -neuro cont to follow -daily bmp, CBC >>on 08/12 asked for [facility] D/C summary from before he went to [facility] > to get renal bx report and renal consult, last neph note as well as d/c summary >need to figure out what workup for renal failure may be pending still ;ordered repeat urine studies and ESR to start and prot /creat here Spent > 10 minutes conferring w/ , updating her Care coordinated with Nat Back Admission and Anticipated Discharge Date Admission Date: August 08, 2022 Subjective neuro recommending transfer to [facility] for continuous EEG monitoring as EEG today worse with PLEDS (periodic lateralizing epilepsy discharges); transfer being arranged. still waiting on outside records. recurrent hypoglycemia overnight >> 29 and 46 >> but genreally i n100s. more interactive today insofar as tracks, shakes head no that no shortness of breath and no not thirsty. can't elicit further ROS from pt. his is at bedside; she is tearful at times. Review of Systems Review of Systems: Unobtainable due to cognitive status (d/t neurocog status) Physical Exam Constitutional: well developed and + frail appearing; no acute distress Eyes: EOM intact bilaterally ENMT: Ears: no external ear abnormality Nose: no external nose abnormality Mouth: + dry oral mucous membranes Neck: no nuchal rigidity Respiratory: normal respiratory effort Auscultation: lungs clear to auscul tation bilaterally and + diminished lung sounds Cardiovascular: Rate/Rhythm: regular rate and regular rhythm Extremities: + edema (2+ ankle edema; L>R puffy hands) Gastrointestinal (Abdomen): Inspection/Auscultation: normal bowel sounds Percussion/Palpation: abdomen soft; abdomen nontender Musculoskeletal: Extremities: + abnormal strength (not moving RLE for me) Skin: no rashes, warm and dry Neurologic: faith, aphasic, no tremor , alert Results & Data ([facility]) Vital Signs (Past 12 Hours) Vital Signs Temp Pulse Resp BP Pulse Ox O2 Del Method 08/13/22 11:50 36.8 C 81 18 154/68 H 94 Room Air 08/13/22 08:00 36.9 C 82 18 157/74 H 97 Room Air 08/13/22 03:12 38.1 C H 76 20 152/62 H 95 Room Air 08/13/22 00:20 37.1 C 75 16 150/65 H 96 Room Air Laboratory Results 08/11/22 06:00 08/13/22 05:43
[2022-08-13] MEDS ORDERED: POTASSIUM CHLORIDE CRTAB 20 MEQ TABCR PO SCH (12:30)
[2022-08-13] MEDS ORDERED: FUROSEMIDE 40 MG/4 ML VIAL IV SCH (12:30)
[2022-08-13] MEDS ORDERED: BUMETANIDE 2 MG in SYRINGE 0 ML IV SCH (12:30)
[2022-08-13] MEDS: BUMETANIDE 2 MG in SYRINGE 0 ML IV SCH ×2 (13:45→19:45)
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
--- NOTE | 2022-08-13 17:01 | Progress Notes ---
DATE OF SERVICE: 08/13/2022. SUBJECTIVE: I am seeing the patient for new onset seizures. No overt seizure activity has been noted since the weekend. The patient is on Keppra. His EEG on 08/11/2022 showed PLED, periodic lateralizing epileptiform discharge. His MRI of the brain on 08/11/2022, noncontrast due to renal failure showed no acute abnormality. There are advanced confluent subcortical and periventricular microangiopathic disease. Hippocampi are normal and symmetric. The patient's T-max early this morning was 38.1. Otherwise, the patient had been afebrile. On 08/11/2022, his white count was 7.9. His serum sodium today was 135, creatinine 2.38, blood sugar 144, calcium 7.7, albumin 2.3, potassium appears to correct for level of albumin. EEG today shows worsening periodic lateralizing epileptiform discharges. OBJECTIVE: The patient is awake, distractible, follows simple commands to lift up the hands. He will not state his name, will not answer questions. Pupils are equal and reactive to light. He has no fixed gaze preference. There is no facial asymmetry, both arms drifts symmetrically. The patient does not follow commands to lift left leg. Reflexes are symmetric. Query upgoing left toe. IMPRESSION AND PLAN: This patient has had several witnessed seizures and was started on Keppra. EEG 2 days ago showed PLEDs and today shows worsening of PLEDs. The patient has no obvious structural deficits such as stroke. Although the MRI of the brain was noncontrast, there is no evidence of a temporal lobe process such as HSV. Dr. Hendrix and I discussed his case. He reviewed the EEG with the [place] epileptologist and they recommended continuous EEG monitoring for intermittent seizure. Dr. Hendrix and I discussed at some point if the patient is not clearing and etiology is unclear, he will need a lumbar puncture. Likely this will need to include autoimmune antibodies. The patient's renal failure is relatively new and the results of the biopsy are not known to the family. One wonders whether or not this could have been dysimmune. 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 Paraneoplastic etiology would still be possible from other sources. Recommend transfer to a tertiary care. I attempted to call the patient's daughter, Merary, but there was no answer. I communicated with Dr. Bellamy as well as Dr. Ring. Job ID: [id number] [facility]
[2022-08-13 19:30] VITALS: BP 180/71; TEMP 98.8; O2SAT 93
[2022-08-13] MEDS: hydrOXYzine HCl 10 MG TAB PO SCH (20:24)
[2022-08-13 21:47] VITALS: PULSE 82
[2022-08-13] MEDS ORDERED: BUMETANIDE 3 MG in SYRINGE 0 ML IV ONE (22:00)
--- NOTE | 2022-08-14 07:43 | Discharge Summary ---
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 25 mg Tablet 25 mg PO TID docusate sodium [Colace] 100 mg Capsule 100 mg PO BID folic acid 1 mg Tablet 1 mg PO DAILY hydroxyzine HCl 10 mg Tablet 10 mg PO HS heparin (porcine) 5,000 unit/mL Solution 5,000 unit SUBCUT Q8H insulin glargine [Lantus Solostar U-100 Insulin] 100 unit/mL (3 mL) insulin pen 10 unit SUBCUT HS acetaminophen 325 mg Tablet 650 mg PO QID PRN (Reason: Pain) hydrocodone-acetaminophen 5-325 mg Tablet 1 tab PO Q4H PRN (Reason: Pain) bisacodyl 10 mg Suppository 10 mg HI DAILY PRN (Reason: Constipation) Humulin R Regular U-100 Insuln 100 unit/mL Solution 1 sliding scale dose SUBCUT ACHS Rx Instructions: moderate scale polymyxin B sulf-trimethoprim 10,000 unit- 1 mg/mL Drops 1 drp ophthalmic (eye) QID Rx Instructions: left eye polyethylene glycol 3350 [Miralax] 17 gram Powder In Packet 17 g PO DAILY Rx Instructions: with lunch melatonin 3 mg Tablet 3 mg PO HS PRN (Reason: Insomnia) sennosides-docusate sodium [Senna with Docusate Sodium] 8.6-50 mg Tablet 1 tab-cap PO QDL magnesium hydroxide [Milk of Magnesia] 400 mg/5 mL Suspension 30 ml PO DAILY amlodipine 10 mg Tablet 10 mg PO DAILY Fleet Enema 19-7 gram/118 mL Enema 133 ml HI DAILY PRN (Reason: Constipation) potassium phosphate, monobasic 500 mg Tablet,Soluble See Rx Instructions .ROUTE .COMPLEX Rx Instructions: Potassium Phostphate-Sodium Phosphate [id number]. One tablet by mouth with meals and at bed time. Discontinued quetiapine [Seroquel] 25 mg Tablet 25 mg PO HS tramadol 50 mg Tablet 100 mg PO Q6H PRN (Reason: Pain) Discharge Orders: Discharge Order (Routine); Ordered 08/13/22 Ordered By: Evangelista Bellamy Admission Data Admit Date/Time: 08/08/22 14:06 Attending Provider: Evangelista Bellamy Admit Provider: Sully Carias Primary Care Provider: Miguelina Reno Other Providers: Denys Laguna ; Sully Carias ; [facility] ; Kevin Hendrix Other Interventions: Discharge Summary Assessment (RN) Last Done: 08/13/22 21:00
[2022-08-14] MEDS ORDERED: BUMETANIDE 3 MG in SYRINGE 0 ML IV SCH (08:00)
[2022-08-15] MEDS ORDERED: DOXYCYCLINE HYCLATE 100 MG CAP PO SCH (21:00)
== END 2022-08-13 21:00 | disposition short-term general hospital (02) | DRG 291 ==
LOC: ED 10:59 → SUATTDRO 14:06 → 2S 14:06
DX: E10.21 Type 1 diabetes mellitus with diabetic nephropathy; F32.A Depression, unspecified; R47.01 Aphasia; N17.9 Acute kidney failure, unspecified; J91.8 Pleural effusion in other conditions classified elsewhere; G93.41 Metabolic encephalopathy; J81.1 Chronic pulmonary edema; Z88.5 Allergy status to narcotic agent; Z89.611 Acquired absence of right leg above knee; Z87.891 Personal history of nicotine dependence; I50.33 Acute on chronic diastolic (congestive) heart failure; I24.8 Other forms of acute ischemic heart disease; N04.9 Nephrotic syndrome with unspecified morphologic changes; M54.9 Dorsalgia, unspecified; N18.6 End stage renal disease; I13.2 Hypertensive heart and chronic kidney disease with heart failure and with stage 5 chronic kidney disease, or end stage renal disease; E78.5 Hyperlipidemia, unspecified; Z66 Do not resuscitate; D63.8 Anemia in other chronic diseases classified elsewhere; E83.42 Hypomagnesemia; Z99.2 Dependence on renal dialysis; G40.901 Epilepsy, unspecified, not intractable, with status epilepticus; G89.4 Chronic pain syndrome; Z88.6 Allergy status to analgesic agent; Z90.411 Acquired partial absence of pancreas; R18.8 Other ascites